=== PATIENT | female | born 1965 | race Caucasian/White ===

== ENCOUNTER 2016-12-16 05:26 | Inpatient (IN) | payer BC ==
[2016-12-16] MEDS ORDERED: KETOROLAC 30 MG/ML 1 ML VIAL IVP STA (05:45)
[2016-12-16] MEDS ORDERED: ONDANSETRON 4 MG/2 ML VIAL IVP STA (05:45)
[2016-12-16] MEDS ORDERED: SODIUM CHLORIDE 0.9% 1,000 ML IV STA ×2 (05:45→05:46)
--- NOTE | 2016-12-16 05:49 | ED ---
Chest Pain HPI - General Source: patient, family, RN notes reviewed Mode of arrival: ambulatory Limitations: no limitations - History of Present Illness MD Complaint: chest pain, other <Rafi Ceja - Last Filed: 12/16/16 05:47> <Maykel Michaud - Last Filed: 12/16/16 10:02> - General Chief Complaint: Chest Pain Stated Complaint: ABD PAIN Time Seen by Provider: 12/16/16 05:36 - History of Present Illness Initial Comments: This is a 51-year-old female who states she had the onset 4 days ago of epigastric and upper abdominal pain which today became worse and now is radiating down her stomach and up into her chest. She states is 10/10 severity feels like an elephant sitting on her stomach and lower chest she has nausea no vomiting no diarrhea he states feels like something is rubbing around her stomach. She has no prior history of abdominal surgeries she does have a strong family history of gallbladder disease which includes her daughter and her mother. She has had some fevers chills and sweats. No dysuria this time she does have a history of COPD. She is a smoker. We did a long discussion regarding smoking and the need to stop it lasted 3.1 minutes (Rafi Ceja) - Related Data Home Medications Medication Instructions Recorded Confirmed Montelukast [Singulair] 10 mg PO HS 08/09/15 12/16/16 ALPRAZolam [Xanax] 0.5 mg PO BID 12/16/16 12/16/16 DULoxetine HCL [Cymbalta] 30 mg PO DAILY 12/16/16 12/16/16 Fluocinonide 1 applic TOPICAL BID 12/16/16 12/16/16 Ibuprofen [Motrin] 800 mg PO TID PRN 12/16/16 12/16/16 metFORMIN HCL [Glucophage] 500 mg PO DAILY 12/16/16 12/16/16 traMADol HCL [Ultram] 50 mg PO Q6HR PRN 12/16/16 12/16/16 Allergies Allergy/AdvReac Type Severity Reaction Status Date / Time pregabalin [From Lyrica] Allergy Mild Rash/Hives Verified 12/16/16 08:09 Review of Systems ROS Other: All systems not noted in ROS Statement are negative. <Rafi Ceja - Last Filed: 12/16/16 05:47> ROS Other: All systems not noted in ROS Statement are negative. <Maykel Michaud - Last Filed: 12/16/16 10:02> ROS Statement: Those systems with pertinent positive or pertinent negative responses have been documented in the HPI. EKG Findings - EKG Results: EKG: interpreted by ERMD, sinus rhythm (Sinus rhythm rate of 58 MS interval is 142 QRS duration 92 QT/QTC of 464/[address] changes no acute elevations or depressions) <MarcialRafi - Last Filed: 12/16/16 05:47> Past Medical History Past Medical History: COPD, Diabetes Mellitus, Fibromyalgia, GERD/Reflux Additional Past Medical History / Comment(s): fatty liver, bronchitis, uti, hiatal hernia,rosecea. History of Any Multi-Drug Resistant Organisms: MRSA Date of last positivie culture/infection: 08/24/16 MDRO Source:: abdomen Past Surgical History: No Surgical Hx Reported Additional Past Surgical History / Comment(s): I AND D OF LABIAL ABSCESS/ fred groin abcess Past Anesthesia/Blood Transfusion Reactions: No Reported Reaction Additional Past Anesthesia/Blood Transfusion Reaction / Comment(s): no sx hx Past Psychological History: Anxiety, Depression Smoking Status: Current every day smoker Past Alcohol Use History: None Reported, Occasional Additional Past Alcohol Use History / Comment(s): started smoking at age 10 smokes 1 ppd, occ use of alcohol.occ smokes marijuana. Past Drug Use History: Marijuana - Past Family History Father History Unknown: Yes Additional Family Medical History / Comment(s): pacemaker,anxiety,depression Mother History Unknown: Yes Family Medical History: Diabetes Mellitus, Hypertension Additional Family Medical History / Comment(s): depression/anxiety <MarcialRafi - Last Filed: 12/16/16 05:47> General Exam Limitations: no limitations General appearance: alert, anxious Head exam: Present: atraumatic, normocephalic, normal inspection Eye exam: Present: normal appearance, PERRL, EOMI. Absent: scleral icterus, conjunctival injection, periorbital swelling ENT exam: Present: normal exam, mucous membranes moist Neck exam: Present: normal inspection. Absent: tenderness, meningismus, lymphadenopathy Respiratory exam: Present: normal lung sounds bilaterally. Absent: respiratory distress, wheezes, rales, rhonchi, stridor Cardiovascular Exam: Present: regular rate, normal rhythm, normal heart sounds. Absent: systolic murmur, diastolic murmur, rubs, gallop, clicks GI/Abdominal exam: Present: soft, tenderness (Epigastric right and left upper quadrant tenderness no guarding rebound), normal bowel sounds. Absent: distended, guarding, rebound, rigid Rectal exam: Present: deferred Extremities exam: Present: normal inspection, full ROM, normal capillary refill. Absent: tenderness, pedal edema, joint swelling, calf tenderness Back exam: Present: normal inspection Neurological exam: Present: alert, oriented X3, CN II-XII intact Psychiatric exam: Present: normal affect, normal mood Skin exam: Present: warm, dry, intact, normal color. Absent: rash <Rafi Ceja - Last Filed: 12/16/16 05:47> <Maykel Michaud - Last Filed: 12/16/16 10:02> - General Exam Comments Initial Comments: This is a well-developed well-nourished awake alert oriented 3 female (Marcial Rafi) Course <Rafi Ceja - Last Filed: 12/16/16 05:47> <Maykel Michaud - Last Filed: 12/16/16 10:02> Vital Signs 12/16/16 12/16/16 12/16/16 05:29 06:35 07:33 Temperature 97.1 F L Pulse Rate 70 57 L 63 Respiratory 24 18 18 Rate Blood Pressure 131/69 112/60 129/60 O2 Sat by Pulse 98 97 97 Oximetry 12/16/16 09:14 Temperature Pulse Rate 59 L Respiratory 18 Rate Blood Pressure 108/55 O2 Sat by Pulse 98 Oximetry - Reevaluation(s) Reevaluation #1: 12/16/16 10:01 Computed tomography scan of the aorta, chest abdomen and pelvis shows cystic structure in the pelvis. Possible prominent bladder. Bladder scan does show 500 mL of urine retention. Patient did need to use the restroom and did urinate following this. Ultrasound of the gallbladder shows no acute abnormality. One view abdomen shows nonacute abdomen. Two-view chest x-ray shows normal chest. Patient reevaluated by myself, Dr. Michaud. Patient seems to have the main complaint of chest tightness. Patient states there is also back discomfort and abdominal discomfort earlier however does not complain of these at this time. Abdomen is soft and nontender. Patient states she does feel like she needs to use the restroom. Patient updated on results and plan. Case was discussed in detail with Dr. Hines, who will admit his patient with cardiology consult. ( Maykel Michaud) Disposition <Rafi Ceja - Last Filed: 12/16/16 05:47> <Maykel Michaud - Last Filed: 12/16/16 10:02> Clinical Impression: Chest pain Disposition: ADMITTED IP TO THIS HOSP
[2016-12-16 06:00] LABS: HGB 15.7 gm/dL (11.4-16.0); Mean Platelet Volume 6.6
[2016-12-16 06:04] LABS: ALT 58 U/L (9-52); AST 33 U/L (14-36); Alkaline Phosphatase 60 U/L (38-126); Amylase <30 U/L (30-110); Anion Gap 12 mmol/L; Blood Urea Nitrogen 9 mg/dL (7-17); Calcium 9.3 mg/dL (8.4-10.2); Carbon Dioxide 25 mmol/L (22-30); Chloride 106 mmol/L (98-107); Glucose 128 mg/dL (74-99); Non-African American GFR(MDRD) >60 (>60 ml/min/1.73 sqM); Sodium 143 mmol/L (137-145); Total Bilirubin 1.2 mg/dL (0.2-1.3); Total Protein 6.8 g/dL (6.3-8.2)
[2016-12-16 06:13] LABS: Basophils % (A) 1 %; CH 32.9; CHCM 37.5; Eosinophils # (A) 0.1 k/uL (0-0.7); Eosinophils % (A) 2 %; HCT 44.7 % (34.0-46.0); Luc # (Auto) 0.13; Luc % (Auto) 2; Lymphocytes # (A) 2.3 k/uL (1.0-4.8); Lymphocytes % (A) 39 %; MCHC 35.2 g/dL (31.0-37.0); MCV 88.1 fL (80.0-100.0); Monocytes # (A) 0.4 k/uL (0-1.0); Monocytes % (A) 6 %; Neutrophils # (A) 2.9 k/uL (1.3-7.7); Neutrophils % (A) 50 %; Partial Thromboplastin Time 22.5 sec (22.0-30.0); RBC 5.07 m/uL (3.80-5.40); RDW 13.1 % (11.5-15.5); WBC 5.8 k/uL (3.8-10.6); WBC (Perox) 5.67
[2016-12-16 06:16] LABS: Creatine Kinase 70 U/L (30-135)
[2016-12-16 06:30] LABS: Creatine Kinase MB 0.7 ng/mL (0.0-2.4); Troponin I <0.012 ng/mL (0.000-0.034)
[2016-12-16 06:39] LABS: Manual Review Performed
--- NOTE | 2016-12-16 06:53 | XR ---
EXAMINATION TYPE: XR chest 2V DATE OF EXAM: 12/16/2016 6:02 AM COMPARISON: 08/26/2016 HISTORY: Chest pain TECHNIQUE: Frontal and lateral views of the chest are obtained. FINDINGS: Heart and mediastinum are normal. Lungs are clear. Diaphragm is normal. There are chest le ads. IMPRESSION: Normal chest. No change.
--- NOTE | 2016-12-16 06:54 | XR ---
EXAMINATION TYPE: XR abdomen 1V DATE OF EXAM: 12/16/2016 6:03 AM COMPARISON: NONE HISTORY: Epigastric pain TECHNIQUE: 2 views FINDINGS: Bowel gas pattern is normal. There is no sign of intestinal obstruction or pneumoperitoneum . Fecal pattern is normal. There is no sign of a mass. There are no pathologic calcifications over th e kidneys. Lung bases are clear. IMPRESSION: Nonacute abdomen.
[2016-12-16] MEDS ORDERED: MORPHINE SULFATE 4 MG/ML SYRINGE IV STA (07:58)
--- NOTE | 2016-12-16 08:12 | US ---
EXAMINATION TYPE: US gallbladder DATE OF EXAM: 12/16/2016 7:57 AM COMPARISON: NONE CLINICAL HISTORY: Pain. EC patient with nausea, diarrhea, and chest pain radiating to back x 4 days EXAM MEASUREMENTS: Liver Length: 20.1 cm Gallbladder Wall: 0.2 cm CBD: 0.5 cm Right Kidney: 10.3 x 5.3 x 4.7 cm TECHNOLOGIST IMPRESSION: Pancreas: hyperechoic Liver: hyperechoic and attenuated posteriorly Gallbladder: wnl Evidence for sonographic Myers's sign: pain at epigastric and right abd pain CBD: wnl Right Kidney: wnl Visualized pancreas is heterogeneous appearance without suspicious mass or ductal dilatation. Entire pancreas is not well-visualized due to overlying bowel gas. Heterogeneously hyperechoic liver is note d limiting evaluation for focal solid or cystic masses. Finding likely on basis of diffuse fatty infi ltration. IMPRESSION: No gallstones or ultrasound evidence for acute cholecystitis. Probable fatty infiltration of liver.
[2016-12-16] MEDS ORDERED: FAMOTIDINE 20 MG/2 ML VIAL IV STA (08:18)
[2016-12-16] MEDS ORDERED: RX INFO: IV CONTRAST WAS GIVEN 1 EACH MISC MISCELLANE PRN (08:18)
--- NOTE | 2016-12-16 09:46 | CT ---
EXAMINATION TYPE: CT angio thoracic/abd aorta DATE OF EXAM: 12/16/2016 9:26 AM COMPARISON: NONE HISTORY: 51-year-old female with abdominal and back pain TECHNIQUE: Contiguous axial scanning of the chest and abdomen performed without and with IV contrast, patient injected with 100 mL of Omnipaque 350. Coronal/sagittal MIP reconstructions performed. 3-D r econstructions generated on a dedicated independent workstation. CT DLP: 1626.8 mGycm Automated exposure control for dose reduction was used. FINDINGS: CHEST: Initial noncontrast images show no evidence for acute intramural hematoma. No mediastinal hematoma. Heart is normal size without pericardial effusion. Aorta is normal caliber with conventional arch vessel branching anatomy. No evidence for aortic disse ction or significant atherosclerotic change. Scattered nonenlarged mediastinal lymph nodes. No thoracic lymphadenopathy by CT size criteria. No central pulmonary embolus seen. Evaluation of the lungs shows no consolidation or pleural effusion. ABDOMEN: Tiny hiatal hernia. Noncontrast and early arterial phase images of the liver show hepatomegaly at 21 cm craniocaudal. The re appears to be mild fatty infiltration given some fatty sparing along the gallbladder fossa. The abdominal aorta shows very minimal atherosclerotic change along the right lateral wall prior to t he bifurcation. There is no aneurysm. The visceral arteries are widely patent. Common iliac arteries are also patent and nonaneurysmal. Gallbladder, adrenal glands, left kidney, spleen with tiny inferior splenule, and pancreas show no gr oss abnormality. There are a couple duodenal diverticulum at the junction of the second and third por tions projecting into the pancreatic head region. Tiny subcentimeter hypodensity along the anterior lower pole right kidney too small for accurate CT c haracterization, likely cyst. Tiny fatty umbilical hernia. No dilated small bowel, free fluid, or free air. Scattered nonenlarged mesenteric lymph nodes. Normal appendix is suggested. There is some liquid stool within the right hemicolon without pericolonic inf lammatory change. Large cystic structure partially visualized arising from the pelvis and reaching nearly to the level of the sacral promontory. The pelvis is not imaged on this exam. Bones: Facet arthropathy lower lumbar spine. No osseous destructive process. IMPRESSION: 1. NO EVIDENCE FOR ACUTE INTRAMURAL HEMATOMA, AORTIC ANEURYSM, DISSECTION, OR ANY SIGNIFICANT ATHEROS CLEROTIC CHANGE. 2. TINY HIATAL AND FATTY UMBILICAL HERNIAS. 3. SOME LIQUID STOOL IN THE RIGHT HEMICOLON COULD REFLECT MILD ENTERITIS. 4. HEPATOMEGALY AND SUGGESTION OF MILD FATTY INFILTRATION. 5. LARGE CYSTIC STRUCTURE PARTIALLY VISUALIZED ARISING FROM THE PELVIS AND REACHING TO THE LEVEL OF L 5-S1. THIS MAY REPRESENT A PROMINENT URINE DISTENDED BLADDER. CORRELATE FOR ANY URINARY RETENTION. IF INDICATED, ULTRASOUND CAN BE PERFORMED TO EXCLUDE ANY OTHER CYSTIC PELVIC MASS.
[2016-12-16] MEDS ORDERED: NITROGLYCERIN SL TABS 0.4 MG TAB SUBLINGUAL PRN (10:03)
--- NOTE | 2016-12-16 11:20 | US ---
EXAMINATION TYPE: US pelvis complete transvag DATE OF EXAM: 12/16/2016 10:52 AM COMPARISON: CTA aorta earlier today. Pelvic ultrasound March 28, 2013. CLINICAL HISTORY: pain, ? mass. History of ovarian cyst. Recent abnormal CT. TECHNIQUE: Transvaginal (TV) and Transabdominal (TA) pelvic ultrasound Date of LMP: unknown EXAM MEASUREMENTS: Uterus: 6.3 x 2.7 x 5.3 cm Endometrial Stripe: 0.3 cm Right Ovary: Left Ovary: unable to visualize TECHNOLOGIST IMPRESSION: 1. Uterus: Anteverted wnl 2. Endometrium: wnl 3. Right Ovary/right adnexa: cystic area = 11.5 x 7.9 x 8.8cm, unable to visualize any normal ovari an tissue 4. Left Ovary: unable to visualize 5. Left Adnexa: appears wnl 6. Posterior cul-de-sac: wnl Uterus is anteverted in shape and within normal limits in size. Endometrial stripe is within normal l imits. No free fluid in pelvic cul-de-sac is present. There is redemonstration of a large oval anechoic lesion felt to reflect simple cyst in the right ad nexa, it appears increased in size from 2013 ultrasound. No suspicious thickened septa or nodularity is present. No normal-appearing right ovarian tissue is identified. IMPRESSION: There is 11.5 cm simple appearing cyst right adnexa/ovary redemonstrated, increased in si ze from 2013 ultrasound, finding correlates with recent CT. Despite fairly simple ultrasound imaging appearance due to size greater than 7 cm further evaluation with MRI or surgery should be considered since these may be difficult to completely assess on ultraso und to rule out malignancy.
--- NOTE | 2016-12-16 12:08 | P.HPIM ---
History of Present Illness 51-year-old female presented the emergency room complaints of intermittent upper abdominal pain that radiates to the chest. Discomfort started on Thursday. Patient continues with chest pressure. Patient was tearful on examination. On pelvic ultrasound found ovarian mass 11 cm ACCESS REPRESENTATIVE and will become consult. A cardiology will be consult regarding chest Review of Systems Cardiovascular: Reports chest pain Gastrointestinal: Reports abdominal pain Past Medical History Past Medical History: COPD, Diabetes Mellitus, Fibromyalgia, GERD/Reflux, Hyperlipidemia, Hypertension, Liver Disease, Skin Disorder Additional Past Medical History / Comment(s): Past HTN and elevated cholesterol- pt took self off medications for this, abdominal cellulitis, fatty liver, bronchitis, uti, hiatal hernia, occasional bilateral tinnitis, rosecea. History of Any Multi-Drug Resistant Organisms: MRSA Date of last positivie culture/infection: 08/24/16 MDRO Source:: abdomen Past Surgical History: No Surgical Hx Reported Additional Past Surgical History / Comment(s): I & D OF LABIAL ABSCESS/ fred groin abcess Past Anesthesia/Blood Transfusion Reactions: No Reported Reaction Additional Past Anesthesia/Blood Transfusion Reaction / Comment(s): no sx hx Past Psychological History: Anxiety, Depression Additional Psychological History / Comment(s): Pt states she has increased depression which she believes may be r/t deaths in the family. She denies suicidal thoughts or wishing she were . She uses no assistive device. She does not drive, her spouse takes her to appts. Smoking Status: Current every day smoker Past Alcohol Use History: None Reported, Occasional Additional Past Alcohol Use History / Comment(s): started smoking at age 10 smokes 1 ppd, occ use of alcohol in the past but none for years. Occ smokes marijuana. Past Drug Use History: Marijuana Additional Drug Use History / Comment(s): occasionally - Past Family History Father History Unknown: Yes Additional Family Medical History / Comment(s): pacemaker,anxiety,depression Mother History Unknown: Yes Family Medical History: Diabetes Mellitus, Hypertension Additional Family Medical History / Comment(s): depression/anxiety Medications and Allergies Home Medications Medication Instructions Recorded Confirmed Type Montelukast [Singulair] 10 mg PO HS 08/09/15 12/16/16 History ALPRAZolam [Xanax] 0.5 mg PO BID 12/16/16 12/16/16 History DULoxetine HCL [Cymbalta] 30 mg PO DAILY 12/16/16 12/16/16 History Fluocinonide 1 applic TOPICAL BID 12/16/16 12/16/16 History Ibuprofen [Motrin] 800 mg PO TID PRN 12/16/16 12/16/16 History metFORMIN HCL [Glucophage] 500 mg PO DAILY 12/16/16 12/16/16 History traMADol HCL [Ultram] 50 mg PO Q6HR PRN 12/16/16 12/16/16 History Allergies Allergy/AdvReac Type Severity Reaction Status Date / Time pregabalin [From Lyrica] Allergy Mild Rash/Hives Verified 12/16/16 08:09 Physical Exam Vitals: Vital Signs Temp Pulse Resp BP Pulse Ox 12/16/16 12:00 97.8 F 51 L 18 105/54 95 12/16/16 10:22 97.8 F 59 L 20 99/54 97 - Constitutional General appearance: mild distress, obese - EENT Eyes: PERRLA Ears: bilateral: normal - Neck Neck: normal ROM - Respiratory Respiratory: bilateral: CTA - Cardiovascular Rhythm: regular - Gastrointestinal General gastrointestinal: soft Localized gastrointestinal: tender: diffuse - Integumentary Integumentary: normal - Neurologic Neurologic: CNII-XII intact - Musculoskeletal Musculoskeletal: gait normal - Psychiatric Patient tearful on exam Psychiatric: A&O x's 3, intact judgment & insight Results CBC & Chem 7: 12/16/16 05:45 12/16/16 05:45 Chest x-ray: report reviewed Abdominal x-ray: report reviewed CT scan - abdomen: report reviewed CT scan - chest: report reviewed US - abdomen: report reviewed Assessment and Plan Plan: Assessment Chest pain History of anxiety/depression COPD stable history of smoking Hypertension Diabetes type 2 Fibromyalgia GERD Ovarian mass right side Plan Cardiology consultation regarding chest pain ACCESS REPRESENTATIVE regarding ovarian mass
[2016-12-16 12:17] LABS: Creatine Kinase 56 U/L (30-135)
[2016-12-16 12:30] LABS: Creatine Kinase MB 0.5 ng/mL (0.0-2.4); Troponin I <0.012 ng/mL (0.000-0.034)
[2016-12-16] MEDS ORDERED: traMADol 50 MG TAB PO PRN (12:56)
[2016-12-16 13:05] LABS: Glucose,Whole Blood 141 mg/dL (75-99)
[2016-12-16] MEDS: NITROGLYCERIN OINT 1 INCH/GM PACKET TOPICAL SCH ×2 (15:22→21:04)
[2016-12-16 17:16] LABS: Glucose,Whole Blood 114 mg/dL (75-99)
--- NOTE | 2016-12-16 18:08 | CONS ---
DATE OF CONSULTATION: CHIEF COMPLAINT: Chest pain. Deena is a 51-year-old lady with no significant of prior cardiac history who came to hospital complaining of primarily abdominal discomfort and also had some chest pain when she was eating food. She does not have any angina. Does not have shortness of breath, paroxysmal nocturnal dyspnea or orthopnea. On her evaluation she was found to have an ovarian mass and is currently being evaluated for the same. She already had cardiac enzymes that have been negative and she was evaluated by me in August 2016 and at that time her work-up was negative. She had an echocardiogram that was within normal limits, ruled out for myocardial infarction and she had a dobutamine echo that was terminated due to nausea, vomiting. Past medical history is significant for COPD, diabetes, dyslipidemia, hypertension, liver disease, and chronic skin disorder. Medications: She is on: 1. Singulair. 2. Xanax. 3. Cymbalta. 4. Glucophage. 5. Tramadol. 6. Motrin. ALLERGIC TO LYRICA. The family history is negative for premature coronary artery disease, significant for pacemaker, anxiety and depression. SOCIAL HISTORY: Significant for smoking. There is no history of ETOH abuse, or drug abuse. She states that she uses marijuana. REVIEW OF SYSTEMS: HEENT: Unremarkable. CARDIAC: As described above. Respiratory negative. GI: Negative. GENITOURINARY: Negative. ALLERGY/IMMUNOLOGY: Negative. MUSCULOSKELETAL: Significant thin for arthritis. PSYCHOSOCIAL: Negative. ENDOCRINE: Negative. HEMATOLOGICAL: Negative. DERM: Negative. CONSTITUTIONAL: Negative. The rest of the system review is not relevant. On exam, comfortable at rest. Vital signs are stable. There is no jugular venous distention. Chest exam reveals good air entry bilaterally. Heart exam reveals first and second heart sounds. No gallop. No murmur, no rub. ABDOMEN: Soft, nontender. Exam of extremities did not reveal edema. Peripheral pulses are felt. Labs show a hemoglobin of 15.7, platelet count is 277. Potassium is 4. Creatinine is 0.5. D-dimer is negative. She had a CT chest that is negative for aortic aneurysm or dissection, has a pelvic mass. ASSESSMENT: 1. Chest pain, atypical does not require further work-up at this time. Will obtain a 2-D echo. 2. Pelvic mass work-up in progress. The patient may undergo a Lexiscan as outpatient.
[2016-12-16 19:06] LABS: Creatine Kinase MB 0.4 ng/mL (0.0-2.4); Troponin I <0.012 ng/mL (0.000-0.034)
[2016-12-16 19:14] LABS: Creatine Kinase 60 U/L (30-135)
[2016-12-16] MEDS: MORPHINE SULFATE 2 MG/ML SYRINGE IVP PRN (19:37)
--- NOTE | 2016-12-16 21:10 | P.GSCN ---
History of Present Illness Consult date: 12/16/16 Reason for Consult: Abdominal pain History of present illness: This is a 51-year-old female who's mid loss we'll for workup of abdominal pain. The patient states that she has pain in the epigastric and right left lower quadrant. She has some pain when eating. She's undergone a pelvic ultrasound shows a 11 cm right ovarian cyst. A Review of Systems - Constitutional Reports as per HPI Past Medical History Past Medical History: COPD, Diabetes Mellitus, Fibromyalgia, GERD/Reflux, Hyperlipidemia, Hypertension, Liver Disease, Skin Disorder Additional Past Medical History / Comment(s): Past HTN and elevated cholesterol- pt took self off medications for this, abdominal cellulitis, fatty liver, bronchitis, uti, hiatal hernia, occasional bilateral tinnitis, rosecea. History of Any Multi-Drug Resistant Organisms: MRSA Year Discovered:: 08/24/16 MDRO Source:: abdomen Past Surgical History: No Surgical Hx Reported Additional Past Surgical History / Comment(s): I & D OF LABIAL ABSCESS/ fred groin abcess Past Anesthesia/Blood Transfusion Reactions: No Reported Reaction Additional Past Anesthesia/Blood Transfusion Reaction / Comm: no sx hx Past Psychological History: Anxiety, Depression Additional Psychological History / Comment(s): Pt states she has increased depression which she believes may be r/t deaths in the family. She denies suicidal thoughts or wishing she were . She uses no assistive device. She does not drive, her spouse takes her to appts. Smoking Status: Current every day smoker Past Alcohol Use History: None Reported, Occasional Additional Past Alcohol Use History / Comment(s): started smoking at age 10 smokes 1 ppd, occ use of alcohol in the past but none for years. Occ smokes marijuana. Past Drug Use History: Marijuana Additional Drug Use History / Comment(s): occasionally - Past Family History Father History Unknown: Yes Additional Family Medical History / Comment(s): pacemaker,anxiety,depression Mother History Unknown: Yes Family Medical History: Diabetes Mellitus, Hypertension Additional Family Medical History / Comment(s): depression/anxiety Medications and Allergies Home Medications Medication Instructions Recorded Confirmed Type Montelukast [Singulair] 10 mg PO HS 08/09/15 12/16/16 History ALPRAZolam [Xanax] 0.5 mg PO BID 12/16/16 12/16/16 History DULoxetine HCL [Cymbalta] 30 mg PO DAILY 12/16/16 12/16/16 History Fluocinonide 1 applic TOPICAL BID 12/16/16 12/16/16 History Ibuprofen [Motrin] 800 mg PO TID PRN 12/16/16 12/16/16 History metFORMIN HCL [Glucophage] 500 mg PO DAILY 12/16/16 12/16/16 History traMADol HCL [Ultram] 50 mg PO Q6HR PRN 12/16/16 12/16/16 History Allergies Allergy/AdvReac Type Severity Reaction Status Date / Time pregabalin [From Lyrica] Allergy Mild Rash/Hives Verified 12/16/16 08:09 Surgical - Exam Vital Signs Temp Pulse Resp BP Pulse Ox 97.1 F L 70 24 131/69 98 12/16/16 05:29 12/16/16 05:29 12/16/16 05:29 12/16/16 05:29 12/16/16 05:29 - General well developed, no distress - Eyes PERRL - ENT normal pinna - Neck no masses - Respiratory normal expansion - Cardiovascular Rhythm: regular - Abdomen Abdomen soft. There is mild tenderness in the epigastric right upper quadrant and right left lower quadrant. There is no rebound or guarding. Abdomen: soft Results - Labs 12/16/16 05:45 12/16/16 05:45 Abnormal Lab Results - Last 24 Hours (Table) 12/16/16 12/16/16 Range/Units 13:02 17:12 POC Glucose (mg/dL) 141 H 114 H (75-99) mg/dL - Imaging Abdominal x-ray: report reviewed (Nonspecific) CT scan - pelvis: report reviewed (11 cm right ovarian cyst) US - abdomen: report reviewed (No evidence of gallstones) Assessment and Plan Plan: Abdominal pain. Her pelvic pain to be related to her 11 cm ovarian cysts. Her epigastric and right upper quadrant pain may be related to biliary dyskinesia. A HIDA scan will be ordered.
[2016-12-17] MEDS: ALPRAZolam 0.5 MG TAB PO SCH ×3 (00:15→22:17)
[2016-12-17] MEDS: MONTELUKAST 10 MG TAB PO SCH ×2 (00:15→22:17)
[2016-12-17] MEDS: NITROGLYCERIN OINT 1 INCH/GM PACKET TOPICAL SCH ×4 (00:16→19:48)
[2016-12-17] MEDS: MORPHINE SULFATE 2 MG/ML SYRINGE IVP PRN ×4 (00:17→22:17)
[2016-12-17 08:17] LABS: Cholesterol 172 mg/dL (<200); HDL Cholesterol 27 mg/dL (40-60); Triglycerides 234 mg/dL (<150)
--- NOTE | 2016-12-17 08:23 | P.OBCN ---
History of Present Illness Consult date: 12/17/16 Reason for consult: ovarian cyst History of present illness: This is a 51-year-old white female 3 para 1021 last menstrual period one year ago. Patient presented to the hospital yesterday with atypical chest pain. Cardiac examination to this point is negative. Patient is also complaining of a right abdominal pain that has been present over the course of several months. She denies nausea vomiting, she denies diarrhea. There are no urinary symptoms. There has been no vaginal bleeding. She denies vaginal discharge is itching or odor. Review of systems is otherwise negative. Past medical history significant for asthma, [id number] diabetes, obesity, and MRSA infection of the vulva in 2015. ALLERGIES none known. Current medications Singulair daily, Glucophage 500 mg twice daily, Zoloft 100 mg daily, bupropion. Social history is significant for one pack per day tobacco for 30 years, she denies alcohol or drug use. She is , and unemployed. Past surgical history excision of a vulvar abscess, positive MRSA, per Dr. Wagner in August 2015. 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 2 oz. female infant. She denies history of gonorrhea, Chlamydia, herpes, or any other sexually transmitted diseases. Family history is significant for her father dying at age 60 with cardiac disease, mother of age related illness age 80. No known history in the family of cancers of the ovaries, cervix, uterus, colon or breast. On exam this is a white female, 5 foot 4 inches, 193 pounds, blood pressure 103/ 52, pulse 61, respirations 18, 94% oxygenation on room air, temperature 98.9. The HEENT exam reveals a pierced nose and pierced right eyebrow, poor dentition , no thyromegaly, no cervical lymphadenopathy. Breasts reveal bilaterally pierced nipples, no skin changes, no nipple discharge, no discernible lesions or masses, no adenopathy. Chest exam reveals bilateral wheezing that changes with cough. Patient has a somewhat dramatic smoker's cough. The cardiac exam reveals regular rate and rhythm with no murmur click or rub. The abdomen is obese, soft, she does have tenderness in the right lower and mid aspects of the abdomen, minimal guarding, no rebound. Active bowel sounds are noted. No CVA tenderness. Extremities reveal no edema, good peripheral pulses. On pelvic exam external genitalia is well estrogenized. The cervix is mobile small and closed. The uterus is anteverted mobile and smooth. Left adnexa is negative. The right adnexal region is positive for a large cystic mass, smooth walled, very tender to palpation. Rectal exam reveals the presence of the same mass in the posterior cul-de-sac on the right, again it is smooth walled to palpation. Dark stool is obtained and sent to the lab for Hemoccult testing. Labs include decreased creatinine at 0.51, ALTs elevated at 58. Hemoglobin 15.7 , hematocrit 44.7, white count 5.8, 277,000 platelets. Ultrasound reveals a 11.5 x 7.9 x 8.8 cm simple cyst on the right adnexa, no septations, no nodularity, no calcifications. I have discussed this with radiologist Dr. Graves and we feel this is likely consistent with a serous cystadenoma. Left adnexa is negative. Uterus is anteverted small, uterine lining 0.3 cm. Impression: 11.5 cm simple clear cystic mass on the right adnexa, no concerning findings for malignancy, but large size, and increased in size from previous imaging in 2013 when it was measured at 7.4 x 7.0 cm. Overall poor medical health. Plan: patient is scheduled for hepatic biliary testing this morning per Dr. Karthik morales. I will discuss her care further with Dr. Hines, admitting physician. Likely surgical intervention will be necessary, timing uncertain at this time. We will continue to follow. Review of Systems Negative except as in HPI Past Medical History Past Medical History: COPD, Diabetes Mellitus, Fibromyalgia, GERD/Reflux, Hyperlipidemia, Hypertension, Liver Disease, Skin Disorder Additional Past Medical History / Comment(s): Past HTN and elevated cholesterol- pt took self off medications for this, abdominal cellulitis, fatty liver, bronchitis, uti, hiatal hernia, occasional bilateral tinnitis, rosecea. History of Any Multi-Drug Resistant Organisms: MRSA Year Discovered:: 08/24/16 MDRO Source:: abdomen Past Surgical History: No Surgical Hx Reported Additional Past Surgical History / Comment(s): I & D OF LABIAL ABSCESS/ fred groin abcess Past Anesthesia/Blood Transfusion Reactions: No Reported Reaction Additional Past Anesthesia/Blood Transfusion Reaction / Comm: no sx hx Past Psychological History: Anxiety, Depression Additional Psychological History / Comment(s): Pt states she has increased depression which she believes may be r/t deaths in the family. She denies suicidal thoughts or wishing she were . She uses no assistive device. She does not drive, her spouse takes her to appts. Smoking Status: Current every day smoker Past Alcohol Use History: None Reported, Occasional Additional Past Alcohol Use History / Comment(s): started smoking at age 10 smokes 1 ppd, occ use of alcohol in the past but none for years. Occ smokes marijuana. Past Drug Use History: Marijuana Additional Drug Use History / Comment(s): occasionally - Past Family History Father History Unknown: Yes Additional Family Medical History / Comment(s): pacemaker,anxiety,depression Mother History Unknown: Yes Family Medical History: Diabetes Mellitus, Hypertension Additional Family Medical History / Comment(s): depression/anxiety Medications and Allergies Home Medications Medication Instructions Recorded Confirmed Type Montelukast [Singulair] 10 mg PO HS 08/09/15 12/16/16 History ALPRAZolam [Xanax] 0.5 mg PO BID 12/16/16 12/16/16 History DULoxetine HCL [Cymbalta] 30 mg PO DAILY 12/16/16 12/16/16 History Fluocinonide 1 applic TOPICAL BID 12/16/16 12/16/16 History Ibuprofen [Motrin] 800 mg PO TID PRN 12/16/16 12/16/16 History metFORMIN HCL [Glucophage] 500 mg PO DAILY 12/16/16 12/16/16 History traMADol HCL [Ultram] 50 mg PO Q6HR PRN 12/16/16 12/16/16 History Allergies Allergy/AdvReac Type Severity Reaction Status Date / Time pregabalin [From Lyrica] Allergy Mild Rash/Hives Verified 12/16/16 08:09 Exam - Vital Signs Vital signs: Vital Signs Temp Pulse Pulse Pulse Resp BP BP 12/17/16 04:00 98.5 F 64 59 L 16 109/58 12/17/16 00:00 98.4 F 58 L 60 16 101/56 12/16/16 20:00 98.6 F 50 L 59 L 16 108/51 12/16/16 16:00 98.4 F 55 L 16 106/52 12/16/16 12:37 98.6 F 88 16 117/80 12/16/16 12:00 97.8 F 51 L 18 105/54 12/16/16 10:22 97.8 F 59 L 20 99/54 Pulse Ox 12/17/16 04:00 92 L 12/17/16 00:00 93 L 12/16/16 20:00 95 12/16/16 16:00 94 L 12/16/16 12:37 99 12/16/16 12:00 95 12/16/16 10:22 97 Intake and Output 12/16/16 12/17/16 12/17/16 22:59 06:59 14:59 Intake Total 500 Balance 500 Intake: Oral 500 Other: Voiding Method Toilet Toilet # Voids 2 1 Weight 87.815 kg See my dictation under HPI, please Results Result Diagrams: 12/16/16 05:45 12/16/16 05:45 Abnormal Lab Results - Last 24 Hours (Table) 12/16/16 12/16/16 Range/Units 13:02 17:12 POC Glucose (mg/dL) 141 H 114 H (75-99) mg/dL Assessment and Plan Plan: Likely surgical intervention will be necessary. Timing of this to be determined secondary to multiple medical issues at this time. We'll discuss further with Dr. Hines. Time with Patient: Greater than 30
--- NOTE | 2016-12-17 10:59 | NM ---
EXAMINATION TYPE: NM hepatobiliary w CCK DATE OF EXAM: 12/17/2016 10:34 AM COMPARISON: Correlation ultrasound 12/16/2016 HISTORY: 51-year-old female with abdominal pain TECHNIQUE: After the intravenous administration of 5.5 mCi Tc 99m Mebrofenin hepatobiliary scintigrap hy is performed. Immediate images post injection. FINDINGS: There is satisfactory initial accumulation of tracer by the liver. The gallbladder is visualized wit hin 12 minutes. The small bowel activity is noted within 46 minutes. At one hour CCK was administer ed, patient was injected with 1.8 mcg of Kinevac, and gallbladder ejection fraction is calculated at 35 %, borderline to mildly diminished IMPRESSION: Gallbladder ejection fraction is borderline to mildly diminished at 35%. Given the normal appearance of the gallbladder on 12/16/2016 ultrasound, correlate for the possibility of biliary dyskinesia.
[2016-12-17] MEDS: ASPIRIN 325 MG TAB PO SCH (11:03)
--- NOTE | 2016-12-17 11:03 | PN ---
Deena is a 51-year-old lady who presented to the hospital with chest discomfort that is atypical and seemed noncardiac in origin. She actually had discomfort when she was eating food. Her workup subsequently revealed an ovarian ( ) and she may need surgery for the same. The patient had a CT chest that is negative for aortic aneurysm or dissection. She had an echocardiogram done within the last few months that showed normal LV function. Physical exam has remained unchanged. Vital signs are stable. Labs show that the LDL cholesterol is 98. Cardiac enzymes have been negative. ASSESSMENT: 1. Atypical chest pain, myocardial infarction ruled out. 2. An ovarian mass. PLAN: From cardiac standpoint, she does not require further testing at this time. I do not see any contraindications for patient undergoing surgery at this time. Thank you for allowing us to participate in the care of this pleasant lady.
[2016-12-17] MEDS: DULoxetine HCL 30 MG CAPSULE.DR PO SCH (11:04)
[2016-12-17] MEDS: metFORMIN 500 MG TAB PO SCH (11:04)
--- NOTE | 2016-12-17 12:31 | P.PN ---
Subjective Patient appears more comfortable than yesterday. Had discussion with Dr. Brand regarding possible surgery tomorrow for ovarian mass. Recommended clearance with pulmonology for reoperative clearance. Patient had consultation with surgery noted possible biliary dysfunction with HIDA scan. Objective - Vital Signs Vital signs: Vital Signs Temp 98.9 F 12/17/16 08:00 Pulse 61 12/17/16 08:00 Resp 18 12/17/16 08:00 BP 103/52 12/17/16 08:00 Pulse Ox 94 L 12/17/16 08:00 Intake & Output 12/16/16 12/17/16 12/17/16 18:59 06:59 18:59 Intake Total 500 Balance 500 Weight 87.815 kg 87.815 kg Intake: Oral 500 Other: Voiding Method Toilet Toilet # Voids 1 - Constitutional General appearance: Present: obese - EENT Eyes: Present: PERRLA Ears: bilateral: normal - Neck Neck: Present: normal ROM - Respiratory Respiratory: bilateral: rhonchi - Cardiovascular Rhythm: regular - Gastrointestinal General gastrointestinal: Present: soft - Integumentary Integumentary: Present: normal - Neurologic Neurologic: Present: CNII-XII intact - Musculoskeletal Musculoskeletal: Present: generalized weakness - Psychiatric Psychiatric: Present: A&O x's 3, appropriate affect, intact judgment & insight - Labs CBC & Chem 7: 12/16/16 05:45 12/16/16 05:45 Labs: Abnormal Lab Results - Last 24 Hours (Table) 12/16/16 12/16/16 12/17/16 Range/Units 13:02 17:12 07:06 POC Glucose (mg/dL) 141 H 114 H (75-99) mg/dL Triglycerides 234 H (<150) mg/dL HDL Cholesterol 27 L (40-60) mg/dL Assessment and Plan Plan: Assessment Chest pain atypical troponins negative treatment deferred by cardiology Abdominal pain possible biliary dyskinesia Ovarian mass right side 11 cm History of COPD smoker Anxiety/depression Fibromyalgia GERD Diabetes type 2 Plan Pulmonology clearance for surgery tomorrow regarding ovarian mass Continue consultation with surgery regarding biliary dyskinesia
--- NOTE | 2016-12-17 13:40 | P.PN ---
Subjective Principal diagnosis: Biliary dyskinesia Patient is a 51-year-old female admitted with epigastric and right lower quadrant abdominal pain associated with nausea without vomiting. Ultrasound of pelvis with evidence of 11 cm right ovarian cyst. HIDA scan with evidence of biliary dyskinesia. Upon examination, patient denies abdominal pain but complains of minimal epigastric pain especially after eating. Denies nausea or vomiting. Afebrile. Hemodynamically stable. Objective - Vital Signs Vital signs: Vital Signs Temp 99.4 F 12/17/16 12:00 Pulse 55 L 12/17/16 12:00 Resp 16 12/17/16 12:00 BP 109/53 12/17/16 12:00 Pulse Ox 93 L 12/17/16 12:00 Intake & Output 12/16/16 12/17/16 12/17/16 18:59 06:59 18:59 Intake Total 500 Balance 500 Weight 87.815 kg 87.815 kg Intake: Oral 500 Other: Voiding Method Toilet Toilet # Voids 1 - Exam GENERAL: Pt awake and alert, well-nourished, and in no acute distress. LUNGS: Breath sounds diminished to auscultation bilaterally. No wheezes, rales , or rhonchi. HEART: Heart S1, S2, no S3 or S4. Regular rate and rhythm. No murmurs, rubs or gallops. ABDOMEN: Soft, obese, mild epigastric tenderness, nondistended, normoactive bowel sounds. NEUROLOGICAL: Pt oriented x 3. - Labs CBC & Chem 7: 12/16/16 05:45 12/16/16 05:45 Labs: Abnormal Lab Results - Last 24 Hours (Table) 12/16/16 12/17/16 Range/Units 17:12 07:06 POC Glucose (mg/dL) 114 H (75-99) mg/dL Triglycerides 234 H (<150) mg/dL HDL Cholesterol 27 L (40-60) mg/dL Assessment and Plan Plan: Impression: 1. Biliary dyskinesia. HIDA scan with ejection fraction of 35%. 2. Ovarian mass right side 11.5 cm. Plan: 1. Patient will need surgical intervention for a large ovarian mass and biliary dyskinesia. Dr. Desir will discuss timing with Dr. Hines and Dr. Arredondo. The above impression and plan have been discussed and directed by Dr Desir. Courtney REYNA acting as scribe for Dr. Desir.
[2016-12-17] MEDS ORDERED: IPRATROPIUM-ALBUTEROL 3 ML NEB INHALATION PRN (15:59)
--- NOTE | 2016-12-17 17:49 | P.CNPUL ---
History of Present Illness Consult date: 12/17/16 Requesting physician: Leo Hines Reason for consult: other (Preoperative pulmonary clearance for surgery.) Chief complaint: Abdominal pains History of present illness: This is a 51-year-old female, heavy smoker, patient was admitted with mostly right upper quadrant and right lower quadrant abdominal pain. This was associated with nausea but no vomiting. Ultrasound of the pelvis showed 11 cm right ovarian cyst HIDA scan was suggestive of early any dyskinesia. Patient was seen by many consultants, and I believe she was scheduled for surgery on her ovarian cyst tomorrow. Considering her history of COPD and heavy smoking, I was asked to see her on consultation for preoperative clearance. Pulmonary- ashby the patient has symptoms of intermittent cough no wheezing, no shortness of breath, no chest pain. She is at least a [id number] smoker. Presently patient has no active pulmonary symptoms. Review of Systems 12 point review of systems were obtained please refer to pertinent positives and negatives as per HPI Past Medical History Past Medical History: COPD, Diabetes Mellitus, Fibromyalgia, GERD/Reflux, Hyperlipidemia, Hypertension, Liver Disease, Skin Disorder Additional Past Medical History / Comment(s): Past HTN and elevated cholesterol- pt took self off medications for this, abdominal cellulitis, fatty liver, bronchitis, uti, hiatal hernia, occasional bilateral tinnitis, rosecea. History of Any Multi-Drug Resistant Organisms: MRSA Date of last positivie culture/infection: 08/24/16 MDRO Source:: abdomen Past Surgical History: No Surgical Hx Reported Additional Past Surgical History / Comment(s): I & D OF LABIAL ABSCESS/ fred groin abcess Past Anesthesia/Blood Transfusion Reactions: No Reported Reaction Additional Past Anesthesia/Blood Transfusion Reaction / Comment(s): no sx hx Past Psychological History: Anxiety, Depression Additional Psychological History / Comment(s): Pt states she has increased depression which she believes may be r/t deaths in the family. She denies suicidal thoughts or wishing she were . She uses no assistive device. She does not drive, her spouse takes her to appts. Smoking Status: Current every day smoker Past Alcohol Use History: None Reported, Occasional Additional Past Alcohol Use History / Comment(s): started smoking at age 10 smokes 1 ppd, occ use of alcohol in the past but none for years. Occ smokes marijuana. Past Drug Use History: Marijuana Additional Drug Use History / Comment(s): occasionally - Past Family History Father History Unknown: Yes Additional Family Medical History / Comment(s): pacemaker,anxiety,depression Mother History Unknown: Yes Family Medical History: Diabetes Mellitus, Hypertension Additional Family Medical History / Comment(s): depression/anxiety Medications and Allergies Home Medications Medication Instructions Recorded Confirmed Type Montelukast [Singulair] 10 mg PO HS 08/09/15 12/16/16 History ALPRAZolam [Xanax] 0.5 mg PO BID 12/16/16 12/16/16 History DULoxetine HCL [Cymbalta] 30 mg PO DAILY 12/16/16 12/16/16 History Fluocinonide 1 applic TOPICAL BID 12/16/16 12/16/16 History Ibuprofen [Motrin] 800 mg PO TID PRN 12/16/16 12/16/16 History metFORMIN HCL [Glucophage] 500 mg PO DAILY 12/16/16 12/16/16 History traMADol HCL [Ultram] 50 mg PO Q6HR PRN 12/16/16 12/16/16 History Allergies Allergy/AdvReac Type Severity Reaction Status Date / Time pregabalin [From Lyrica] Allergy Mild Rash/Hives Verified 12/16/16 08:09 Physical Exam Vitals: Vital Signs Temp Pulse Pulse Resp BP Pulse Ox 12/17/16 15:30 98.9 F 61 18 101/51 93 L 12/17/16 12:00 99.4 F 55 L 16 109/53 93 L 12/17/16 08:00 98.9 F 61 18 103/52 94 L 12/17/16 04:00 98.5 F 64 59 L 16 109/58 92 L 12/17/16 00:00 98.4 F 58 L 60 16 101/56 93 L 12/16/16 20:00 98.6 F 50 L 59 L 16 108/51 95 Intake and Output 12/17/16 12/17/16 12/17/16 06:59 14:59 22:59 Other: Voiding Method Toilet # Voids 1 2 Weight 87.815 kg Physical Exam: Revealed a 51-year-old female in no distress HEENT:[Neck is supple.] [No neck masses.] [No thyromegaly.] [No JVD.] Chest: [Clear throughout, no crackles, no rhonchi, no wheezes.] Cardiac Exam: [Normal S1 and S2, no S3 gallop, no murmur.] Abdomen: [Soft, nontender, no megaly, no rebound, no guarding, normal bowel sounds.] Extremities: [No clubbing, no edema, no cyanosis.] Neurological Exam: [No focal neurologic deficit.] Results - Laboratory Findings CBC and BMP: 12/16/16 05:45 12/16/16 05:45 PT/INR, D-dimer PT 10.0 sec (9.0-12.0) 12/16/16 05:45 INR 1.0 (<1.1) 12/16/16 05:45 D-Dimer 0.33 mg/L FEU (<0.60) 12/16/16 05:45 Abnormal lab findings: Abnormal Labs 12/16/16 12/16/16 12/17/16 13:02 17:12 07:06 POC Glucose (mg/dL) 141 H 114 H Triglycerides 234 H HDL Cholesterol 27 L - Diagnostic Findings Chest x-ray: image reviewed (Chest x-ray reviewed on admission no evidence of active disease) Assessment and Plan Plan: Impression: 1 large ovarian cyst, may require surgical intervention. 2 biliary dyskinesia with HIDA scan showing ejection fraction of 35%. 3 suspect mild COPD, presently on proper bronchodilators. Recommendation: Patient will be cleared for surgery, she is considered low operative risk. Time with Patient: Greater than 30
[2016-12-18] MEDS: NITROGLYCERIN OINT 1 INCH/GM PACKET TOPICAL SCH ×5 (03:22→23:16)
[2016-12-18] MEDS: MORPHINE SULFATE 2 MG/ML SYRINGE IVP PRN (04:00)
--- NOTE | 2016-12-18 07:39 | P.PN ---
Subjective Principal diagnosis: 11.5 cm right pelvic mass Objective - Vital Signs Vital signs: Vital Signs Temp 98.0 F 12/18/16 04:00 Pulse 52 L 12/18/16 04:00 Resp 16 12/18/16 04:00 BP 114/56 12/18/16 04:00 Pulse Ox 95 12/18/16 04:00 Intake & Output 12/17/16 12/18/16 12/18/16 18:59 06:59 18:59 Other: Voiding Method Toilet Toilet # Voids 2 1 - Constitutional General appearance: Present: average body habitus, cooperative, obese - EENT Eyes: Present: PERRLA ENT: Present: hearing grossly normal - Neck Neck: Present: normal ROM Thyroid: bilateral: normal size - Respiratory Respiratory: bilateral: CTA - Cardiovascular Rhythm: regular - Gastrointestinal General gastrointestinal: Present: normal bowel sounds, tenderness Localized gastrointestinal: tender: RLQ, guarding: RLQ, mass: RLQ - Integumentary Integumentary: Present: normal - Neurologic Neurologic: Present: CNII-XII intact - Musculoskeletal Musculoskeletal: Present: strength equal bilaterally - Psychiatric Psychiatric: Present: A&O x's 3, appropriate affect, intact judgment & insight - Labs CBC & Chem 7: 12/16/16 05:45 12/16/16 05:45 Labs: Abnormal Lab Results - Last 24 Hours (Table) 12/17/16 Range/Units 07:06 Triglycerides 234 H (<150) mg/dL HDL Cholesterol 27 L (40-60) mg/dL Assessment and Plan Plan: Plan is for surgery this afternoon. I have discussed with the patient our plan , exploratory laparotomy, right salpingo-oophorectomy, pelvic washings, possible left salpingo-oophorectomy and surgery as deemed appropriate. She is aware the risks of surgery to include but not be exclusive of bleeding, infection, perforation or damage to bowel, bladder, ureters or indeed any pelvic or abdominal organs. She understands the risks of anesthesia, aspiration , nerve damage or even . Her pulmonary history is of concern, however preoperative clearance has been given last night per Dr. Vaughn. The patient understands our discussion and is ready for surgery at noon. All questions answered. Time with Patient: Less than 30
--- NOTE | 2016-12-18 08:13 | P.PN ---
Progress Note - Text The patient still has some complaints of right quadrant pain. Her HIDA scan is positive for biliary dyskinesia. I discussed these findings the patient. The patient will have laparoscopic cholecystectomy performed today. This will be scheduled to be concurrent with Dr. Arredondo's procedure.
--- NOTE | 2016-12-18 08:19 | ECHOF ---
Referral Reason:chest pain MEASUREMENTS -------- HEIGHT: 162.6 cm WEIGHT: 87.5 kg BP: 103/52 RVIDd: 3.5 cm (< 3.3) IVSd: 1.3 cm (0.6 - 1.1) LVIDd: 3.7 cm (3.9 - 5.3) LVPWd: 1.1 cm (0.6 - 1.1) IVSs: 1.7 cm LVIDs: 2.6 cm LVPWs: 1.9 cm LA Diam: 4.1 cm (2.7 - 3.8) LAESV Index (A-L): 23.50 ml/m Ao Diam: 2.8 cm (2.0 - 3.7) AV Cusp: 1.9 cm (1.5 - 2.6) LA Diam: 3.6 cm (2.7 - 3.8) MV EXCURSION: 12.907 mm (> 18.000) MV EF SLOPE: 98 mm/s (70 - 150) EPSS: 0.7 cm MV E Cristopher: 0.82 m/s MV DecT: 226 ms MV A Cristopher: 0.62 m/s MV E/A Ratio: 1.31 RAP: 5.00 mmHg RVSP: 30.28 mmHg FINDINGS -------- Resting bradycardia (HR<60bpm). This was a technically good study. There is mild concentric left ventricular hypertrophy. Overall left ventricular systolic function is normal with, an EF between 55 - 60 %. The right ventricle is mildly enlarged. Normal LA size by volume 22+/-6 ml/m2. The right atrium is normal in size. Aortic valve is trileaflet and is mildly thickened. Mild mitral annular calcification present. There is trace mitral regurgitation. Mild tricuspid regurgitation present. Right ventricular systolic pressure is normal at < 35 mmHg. Trace/mild (physiologic) pulmonic regurgitation. The aortic root size is normal. Normal inferior vena cava with normal inspiratory collapse consistent with estimated right atrial pressure of 5 mmHg. Echo free space may represent effusion or a pericardial fat pad. CONCLUSIONS -------- 1. Resting bradycardia (HR<60bpm). 2. There is trace mitral regurgitation. 3. Mild tricuspid regurgitation present. 4. Right ventricular systolic pressure is normal at < 35 mmHg. 5. Trace/mild (physiologic) pulmonic regurgitation. 6. The aortic root size is normal. 7. Echo free space may represent effusion or a pericardial fat pad. 8. This was a technically good study. 9. There is mild concentric left ventricular hypertrophy. 10. Overall left ventricular systolic function is normal with, an EF between 55 - 60 %. 11. The right ventricle is mildly enlarged. 12. Normal LA size by volume 22+/-6 ml/m2. 13. The right atrium is normal in size. 14. Aortic valve is trileaflet and is mildly thickened. 15. Mild mitral annular calcification present. CURATORIAL SPECIALIST: Mian Joyce RDCS
[2016-12-18] MEDS ORDERED: LIDOCAINE 1% 20 ML VIAL (10MG/ML) FOR IV START INTRADERMA ONE (10:31)
[2016-12-18 10:46] LABS: Glucose,Whole Blood 107 mg/dL (75-99)
[2016-12-18] MEDS ORDERED: SODIUM CHLORIDE 0.9% 1,000 ML IV ONE (10:52)
[2016-12-18] MEDS ORDERED: ceFAZolin 2 GM in SODIUM CHLORIDE 0.9% 100 ML IVPB STA (11:04)
[2016-12-18] MEDS ORDERED: MIDAZOLAM 2 MG/2 ML VIAL IV ONE (11:05)
[2016-12-18] MEDS ORDERED: NALOXONE 0.4 MG/ML 1 ML VIAL IV PRN ×2 (11:16→12:31)
[2016-12-18] MEDS ORDERED: HEPARIN SODIUM,PORCINE 5,000 UNIT/ML 1 ML VIAL SQ ONE (11:25)
[2016-12-18] MEDS ORDERED: ONDANSETRON 4 MG/2 ML VIAL IVP ONE (11:43)
[2016-12-18] MEDS ORDERED: DEXAMETHASONE SOD PHOSPHATE 10 MG/ML 1 ML VIAL IV ONE (11:43)
[2016-12-18] MEDS ORDERED: GLYCOPYRROLATE 0.2 MG/ML 2 ML VIAL ONE (11:51)
[2016-12-18] MEDS ORDERED: SUCCINYLCHOLINE CHLORIDE 100 MG/5 ML SYR IV ONE (11:51)
[2016-12-18] MEDS ORDERED: MIDAZOLAM 2 MG/2 ML VIAL ONE (11:51)
[2016-12-18] MEDS ORDERED: LIDOCAINE 1% INJ 10MG/ML (20 ML MDV) ONE (11:51)
[2016-12-18] MEDS ORDERED: ROCURONIUM BROMIDE 10 MG/ML 10 ML VIAL IV ONE (11:51)
[2016-12-18] MEDS ORDERED: fentaNYL (PF) 50 MCG/ML 2 ML AMP ONE (11:51)
[2016-12-18] MEDS ORDERED: NEOSTIGMINE 1 MG/ML 10 ML VIAL ONE (11:51)
[2016-12-18] MEDS ORDERED: PROPOFOL 10 MG/ML 20 ML VIAL IV ONE (11:51)
[2016-12-18] MEDS ORDERED: BUPIVACAIN-EPI 0.25%-1:200,000 30 ML VIAL SQ ONE (12:14)
[2016-12-18] MEDS ORDERED: LACTATED RINGERS 1,000 ML IV ONE ×2 (12:31→12:33)
[2016-12-18] MEDS ORDERED: HYDROcodone/APAP 5-325MG 1 EACH TAB PO PRN (12:31)
[2016-12-18] MEDS ORDERED: ACETAMINOPHEN TAB 325 MG TAB PO PRN (12:31)
[2016-12-18] MEDS ORDERED: ONDANSETRON 4 MG/2 ML VIAL IVP PRN (12:31)
[2016-12-18] MEDS ORDERED: traMADol 50 MG TAB PO PRN (12:31)
--- NOTE | 2016-12-18 12:31 | P.OP ---
Date of Procedure: 12/18/16 Preoperative Diagnosis: Chronic cholecystitis Postoperative Diagnosis: Chronic cholecystitis Procedure(s) Performed: Laparoscopic cholecystectomy Anesthesia: JAZZMINE Surgeon: Lucho Desir Pathology: other (Gallbladder) Condition: stable Disposition: PACU Description of Procedure: The patient was placed on the operating table. The patient received a general endotracheal tube anesthesia. The patients abdomen was prepped and draped in the usual sterile fashion. Through an infraumbilical stab incision, the fascia of the anterior abdominal wall was grasped with a pair of Kochers and then the Veress needle was placed in the peritoneal cavity. Position of the Veress needle was confirmed with positive drop test. The abdomen was then insufflated. After adequate insufflation, the 10 mm trocar was placed in the peritoneal cavity. Following this the laparoscope was placed in the peritoneal cavity. The patient was placed in the head-up, right side up position and then a 5 mm trocar was placed in the right lateral and right subcostal position under direct visualization. A 8 mm trocar was placed in the epigastric position. The gallbladder was grasped in the fundus and infundibulum. Traction on the gallbladder was placed in the lateral and the cephalad positions. The triangle of Calot was visualized.. The cystic duct was bluntly dissected until the union of the cystic duct and common bile duct was seen. The cystic duct was then divided and sealed with the Harmonic scissors. A PDS Endoloop was then placed throughout the cystic duct stump. The cystic artery divided and sealed with the Harmonic scissors. The gallbladder was then removed from the liver bed using Harmonic scissors. The gallbladder was then extracted through the epigastric port site. Operative field was checked for any bleeding spots and Harmonic scissors was used to coagulate the liver bed. The abdomen was irrigated. The trocars were removed. The skin was closed using interrupted 3-[address] Arredondo then continued with her procedure. Please see her procedure note.
[2016-12-18] MEDS ORDERED: KETOROLAC 30 MG/ML 1 ML VIAL IVP SCH (12:45)
--- NOTE | 2016-12-18 13:07 | P.OP ---
Date of Procedure: 12/18/16 Preoperative Diagnosis: 11 cm right adnexal mass Postoperative Diagnosis: Same Procedure(s) Performed: Exploratory laparotomy, pelvic washings, right salpingo-oophorectomy. Anesthesia: GETA, epidural Surgeon: Tova Arredondo Cook Helper Meat #1: Lesly Arnold Estimated Blood Loss (ml): 20 IV fluids (ml): 1,200 Urine output (ml): 100 Pathology: other (Right tube and ovary, pelvic washings) Condition: stable Disposition: PACU Description of Procedure: After completion of the laparoscopic cholecystectomy, the abdomen is prepped and draped in usual sterile fashion. The Garsia has been placed to direct drainage. Preoperative antibiotics had been given. The appropriate timeout is performed to assure proper patient and procedural identification. A low transverse skin incision is made in this is carried down through the subcutaneous tissue. The tissue is approximately 8-10 cm deep. Fascia is isolated, scored and extended bilaterally with curved Dunn scissors. Peritoneum is next identified and incised. There is no bowel or bladder involvement. Sterile saline is placed into the abdominal cavity and pelvic washings are obtained and sent for cytology. Gentle exploration reveals a negative pelvis with the exception of the large right adnexal mass. The disposable a Daya wound retractors placed into the abdomen for excellent exposure. The large cystic right mass is brought into the operative field. It is clamped with Nilda clamps across the pedicle. It was removed intact and sent to pathology for evaluation. 0 Vicryl sutures used in a Nilda-type stitch to tie flashed and retied the pedicles for excellent hemostasis. Examination of the uterus and the left tube and ovary revealed no abnormal findings, no fibroids, no defects, no cysts on the left adnexa. The pelvis was generously irrigated and all instruments are removed. Fascia is closed in a running stitch of 0 Vicryl with over ligation in the midline. Subcutaneous tissue is irrigated, clean and dry. It is reapproximated with 3-0 Vicryl in a running stitch. 4-0 undyed Vicryl is used and a final subcuticular manner for final skin closure. Steri-Strips and Mastisol are applied to the wound. Dermabond is applied to the laparoscopic wounds. All sponge needle and enhancement counts are correct at the end of our procedure. Patient is brought back to the recovery room in good condition with 100% O2 saturation, blood pressure 105/47, pulse 51. Urine is clear in the Garsia tube. Complications: None
[2016-12-18] MEDS: BUPIVACAINE (PF) 0.5% 37.5 ML, fentaNYL (PF) 1,250 MCG in SODIUM CHLORIDE 0.9% 188 ML EPIDURAL PRN ×2 (13:21→14:59)
[2016-12-18 14:46] LABS: Glucose,Whole Blood 154 mg/dL (75-99)
[2016-12-18] MEDS: metFORMIN 500 MG TAB PO SCH (15:20)
[2016-12-18] MEDS: ALPRAZolam 0.5 MG TAB PO SCH ×2 (15:20→20:37)
[2016-12-18] MEDS: DULoxetine HCL 30 MG CAPSULE.DR PO SCH (15:20)
[2016-12-18] MEDS: KETOROLAC 30 MG/ML 1 ML VIAL IVP SCH ×2 (15:20→19:07)
[2016-12-18] MEDS: ASPIRIN 325 MG TAB PO SCH (15:20)
[2016-12-18] MEDS: diphenhydrAMINE 50 MG/ML 1 ML VIAL IM PRN ×2 (16:52→22:48)
--- NOTE | 2016-12-18 20:08 | P.PN ---
Subjective 51-year-old female that is admitted to the hospital with complains of right upper quadrant pain. Patient was noted to have biliary dyskinesia. Patient was also thereafter noted to have a large right cystic pelvic mass. Patient is postoperative day 1 from a cholecystectomy and right cystic mass removal. Her graft currently patient is comfortable on epidural. Denies having any chest pain, cough, nausea or episodes of emesis. Patient has not been passing gas yet. States to be tolerating clear liquid diet. Objective - Vital Signs Vital signs: Vital Signs Temp 98.2 F 12/18/16 15:28 Pulse 64 12/18/16 16:00 Resp 16 12/18/16 16:00 BP 96/46 12/18/16 15:28 Pulse Ox 94 L 12/18/16 15:28 - Exam Gen. appearance oriented 3 Lungs good air entry clear to auscultation no rhonchi or wheezing noted Heart S1-S2 heard regular rate and rhythm no murmurs appreciable Abdomen postsurgical changes noted. Soft. Bowel sounds are hypoactive Garsia catheter in place Neurologically no focal motor or sensory deficits noted. - Labs CBC & Chem 7: 12/16/16 05:45 12/16/16 05:45 Assessment and Plan Plan: #1 abdominal pain likely secondary to biliary dyskinesia #2 large right cystic pelvic mass status post removal #3 history of ongoing tobacco use #4 mild COPD suspected Plan Continue postoperative management. Diet will be advanced as tolerated however directed by general surgery Continue epidural. Encourage incentive spirometer. Oxygen for comfort.
[2016-12-18 21:46] LABS: Glucose,Whole Blood 230 mg/dL (75-99)
[2016-12-18] MEDS: MONTELUKAST 10 MG TAB PO SCH (22:00)
[2016-12-18] MEDS: INSULIN LISPRO (humaLOG) 300 UNIT/3 ML VIAL SQ SCH (22:03)
[2016-12-19] MEDS ORDERED: HEPARIN SODIUM,PORCINE 5,000 UNIT/ML 1 ML VIAL SQ SCH
[2016-12-19] MEDS: KETOROLAC 30 MG/ML 1 ML VIAL IVP SCH ×3 (00:47→12:51)
[2016-12-19] MEDS ORDERED: diphenhydrAMINE 50 MG/ML 1 ML VIAL IVP PRN (04:22)
[2016-12-19] MEDS: NITROGLYCERIN OINT 1 INCH/GM PACKET TOPICAL SCH ×2 (05:28→12:51)
[2016-12-19 07:22] LABS: ALT 53 U/L (9-52); AST 41 U/L (14-36); Alkaline Phosphatase 46 U/L (38-126); Anion Gap 11 mmol/L; Blood Urea Nitrogen 10 mg/dL (7-17); Calcium 8.5 mg/dL (8.4-10.2); Carbon Dioxide 25 mmol/L (22-30); Chloride 107 mmol/L (98-107); Glucose 95 mg/dL (74-99); Non-African American GFR(MDRD) >60 (>60 ml/min/1.73 sqM); Potassium 3.4 mmol/L (3.5-5.1); Sodium 143 mmol/L (137-145); Total Bilirubin 0.9 mg/dL (0.2-1.3); Total Protein 5.3 g/dL (6.3-8.2)
[2016-12-19 07:25] LABS: Glucose,Whole Blood 97 mg/dL (75-99)
[2016-12-19] MEDS ORDERED: INSULIN LISPRO (humaLOG) 300 UNIT/3 ML VIAL SQ SCH (07:30)
--- NOTE | 2016-12-19 07:56 | P.PN ---
Subjective Principal diagnosis: Postoperative day #1 Slept well. Positive flatus. Minimal pain. No complaints. Objective - Vital Signs Vital signs: Vital Signs Temp 96.4 F L 12/19/16 07:00 Pulse 59 L 12/19/16 07:00 Resp 17 12/19/16 07:00 BP 87/45 12/19/16 07:00 Pulse Ox 95 12/19/16 07:00 Intake & Output 12/18/16 12/19/16 12/19/16 18:59 06:59 18:59 Intake Total 400 Output Total 2500 Balance -2100 Intake: Oral 400 Output: Urine 2500 Uretheral (Garsia) 2500 Other: Voiding Method Toilet - Constitutional General appearance: Present: average body habitus, cooperative, obese - EENT Eyes: Present: PERRLA ENT: Present: hearing grossly normal - Neck Neck: Present: normal ROM - Respiratory Respiratory: bilateral: CTA - Cardiovascular Rhythm: regular Heart sounds: normal: S1, S2 - Gastrointestinal General gastrointestinal: Present: normal bowel sounds - Integumentary Integumentary Comment(s): Low transverse incision well approximated, Steri-Strips applied, no redness or drainage. - Neurologic Neurologic: Present: CNII-XII intact - Musculoskeletal Musculoskeletal: Present: strength equal bilaterally - Psychiatric Psychiatric: Present: A&O x's 3, appropriate affect, intact judgment & insight - Labs CBC & Chem 7: 12/16/16 05:45 12/19/16 06:51 Labs: Abnormal Lab Results - Last 24 Hours (Table) 12/18/16 12/19/16 Range/Units 21:31 06:51 Potassium 3.4 L (3.5-5.1) mmol/L Creatinine 0.49 L (0.52-1.04) mg/dL POC Glucose (mg/dL) 230 H (75-99) mg/dL AST 41 H (14-36) U/L ALT 53 H (9-52) U/L Total Protein 5.3 L (6.3-8.2) g/dL Albumin 3.2 L (3.5-5.0) g/dL Assessment and Plan Plan: Discontinue Garsia. Discontinue epidural. Hep-Lock IV. Advance activity, may shower. Regular diet. Likely discharge home tomorrow on [id number] Advil , Aleve, or Motrin products. Will follow-up with me in the office in 2 weeks. Time with Patient: Less than 30
[2016-12-19 08:26] LABS: Basophils % (A) 0 %; CH 32.8; CHCM 36.5; Eosinophils % (A) 0 %; HCT 37.3 % (34.0-46.0); HDW 2.77; HGB 12.8 gm/dL (11.4-16.0); Luc % (Auto) 1; Lymphocytes # (A) 2.2 k/uL (1.0-4.8); Lymphocytes % (A) 26 %; MCH 31.1 pg (25.0-35.0); MCHC 34.4 g/dL (31.0-37.0); MCV 90.2 fL (80.0-100.0); Mean Platelet Volume 7.6; Monocytes # (A) 0.3 k/uL (0-1.0); Monocytes % (A) 4 %; Neutrophils % (A) 69 %; RBC 4.13 m/uL (3.80-5.40); RDW 13.1 % (11.5-15.5); WBC 8.7 k/uL (3.8-10.6); WBC (Perox) 9.15
[2016-12-19] MEDS: INSULIN LISPRO (humaLOG) 300 UNIT/3 ML VIAL SQ SCH ×2 (08:35→12:51)
[2016-12-19] MEDS: ASPIRIN 325 MG TAB PO SCH (08:37)
[2016-12-19] MEDS: DULoxetine HCL 30 MG CAPSULE.DR PO SCH (08:38)
--- NOTE | 2016-12-19 09:50 | P.PN ---
Progress Note - Text 12/19 51-year-old female status post exploratory lap with Dr. Arredondo. Patient seen and evaluated this morning for pain control, VAS of 2, no complains of nausea vomiting, no complains of sensory or motor deficit. Epidural DC'd
[2016-12-19 11:45] LABS: Glucose,Whole Blood 100 mg/dL (75-99)
[2016-12-19 15:46] VITALS: BP 117/56; PULSE 61; RESP 16; TEMP 96.3
[2016-12-19] MEDS: ALPRAZolam 0.5 MG TAB PO SCH (17:02)
[2016-12-19 17:16] LABS: Glucose,Whole Blood 128 mg/dL (75-99)
--- NOTE | 2016-12-19 19:57 | P.DS ---
Providers Date of admission: 12/18/16 17:29 Attending physician: Leo Hines Primary care physician: Leo Hines Hospital Course: 51-year-old female that is admitted to the hospital with complains of right upper quadrant pain. Patient was noted to have biliary dyskinesia. Patient was also thereafter noted to have a large right cystic pelvic mass. Patient is postoperative day 1 from a cholecystectomy and right cystic mass removal. Her graft currently patient is comfortable on epidural. Denies having any chest pain, cough, nausea or episodes of emesis. Patient has not been passing gas yet. States to be tolerating clear liquid diet. Day of discharge Pt tolerated diet, was passing gas and had a Bm S/p removal of baugh and was urinating without difficulty. - Exam Gen. appearance oriented 3 Lungs good air entry clear to auscultation no rhonchi or wheezing noted Heart S1-S2 heard regular rate and rhythm no murmurs appreciable Abdomen postsurgical changes noted. Soft. Bowel sounds are hypoactive Baugh catheter in place Neurologically no focal motor or sensory deficits noted. - Labs CBC & Chem 7: 12/16/16 05:45 12/16/16 05:45 Assessment and Plan Plan: #1 abdominal pain likely secondary to biliary dyskinesia #2 large right cystic pelvic mass status post removal #3 history of ongoing tobacco use #4 mild COPD suspected Follow up with Dr Arnulfo Desir. Pain meds were given by gen surgery. Plan - Discharge Summary New Discharge Prescriptions: HYDROcodone/APAP 7.5-325MG [[place] 7.5-325] 1 tab PO Q6HR PRN #28 tab PRN Reason: Pain Discharge Medication List Montelukast [Singulair] 10 mg PO HS 08/09/15 [History] ALPRAZolam [Xanax] 0.5 mg PO BID 12/16/16 [History] DULoxetine HCL [Cymbalta] 30 mg PO DAILY 12/16/16 [History] Fluocinonide 1 applic TOPICAL BID 12/16/16 [History] Ibuprofen [Motrin] 800 mg PO TID PRN 12/16/16 [History] metFORMIN HCL [Glucophage] 500 mg PO DAILY 12/16/16 [History] traMADol HCL [Ultram] 50 mg PO Q6HR PRN 12/16/16 [History] HYDROcodone/APAP 7.5-325MG [[place] 7.5-325] 1 tab PO Q6HR PRN #28 tab 12/19/16 [ Rx] Follow up Appointment(s)/Referral(s): Leo Hines MD [Primary Care Provider] - 12/22/16 11:30 am Tova Arredondo MD [STAFF PHYSICIAN] - 1 Week (Office closed. Patient to call and schedule follow up appointment.) Lucho Desir MD [STAFF PHYSICIAN] - 12/23/16 10:15 am Patient Instructions/Handouts: *Surgery [facility] - Laparoscopic Cholecystectomy Discharge Instructions Activity/Diet/Wound Care/Special Instructions: No heavy lifting, pushing, or pulling items greater than 10 pounds. Consistent carbohydrate diet, low fat Shower daily, no soaking in bath tubs, pools, or hot tubs. No driving while taking pain medication. Notify surgeon with any signs or symptoms of infection, increased pain, or not tolerating diet. Discharge Disposition: HOME SELF-CARE
[2016-12-22 14:56] LABS: Mis test requested (Blood) OVA1
== END 2016-12-19 17:27 | disposition home or self-care (01) | DRG 419 ==
LOC: EC 05:26 → 3OBS 10:04 → 6PED 12-18 10:15 → 3SUR 12-18 14:38 → OBSVTOIN 12-18 17:29
PROVIDERS: ADMIT Family Medicine; ATTEND Family Medicine
PROC: 0UT00ZZ Resection of Right Ovary, Open Approach (ICD-10-PCS; 2016-12-18)
PROC: 3E1M38X Irrigation of Peritoneal Cavity using Irrigating Substance, Percutaneous Approach, Diagnostic (ICD-10-PCS; 2016-12-18)
PROC: 0FT44ZZ Resection of Gallbladder, Percutaneous Endoscopic Approach (ICD-10-PCS; principal; 2016-12-18 12:00)
PROC: 0UT50ZZ Resection of Right Fallopian Tube, Open Approach (ICD-10-PCS; 2016-12-18 12:00)
DX: K82.8 Other specified diseases of gallbladder (principal); K76.0 Fatty (change of) liver, not elsewhere classified; I10 Essential (primary) hypertension; F32.9 Major depressive disorder, single episode, unspecified; E11.9 Type 2 diabetes mellitus without complications; E66.9 Obesity, unspecified; E78.00 Pure hypercholesterolemia, unspecified; E78.5 Hyperlipidemia, unspecified; F12.90 Cannabis use, unspecified, uncomplicated; F17.200 Nicotine dependence, unspecified, uncomplicated; F41.9 Anxiety disorder, unspecified; J44.9 Chronic obstructive pulmonary disease, unspecified; J45.909 Unspecified asthma, uncomplicated; K21.9 Gastro-esophageal reflux disease without esophagitis; M79.7 Fibromyalgia; N83.201 Unspecified ovarian cyst, right side; K44.9 Diaphragmatic hernia without obstruction or gangrene; L71.9 Rosacea, unspecified; Z86.14 Personal history of Methicillin resistant Staphylococcus aureus infection; Z79.899 Other long term (current) drug therapy; Z79.84 Long term (current) use of oral hypoglycemic drugs; Z88.8 Allergy status to other drugs, medicaments and biological substances; Z68.33 Body mass index [BMI] 33.0-33.9, adult; Z82.49 Family history of ischemic heart disease and other diseases of the circulatory system
CPT/HCPCS: 36415; 51798; 71020; 71275; 74000; 75635; 76705; 76830; 76856; 78227; 80053; 80061; 81025; 81503; 82150; 82272; 82550; 82553; 83036; 83690; 83735; 83880; 84484; 85025; 85379; 85610; 85730; 88108; 88304; 88305; 88307; 93005; 93306; 96361; 96374; 96375; 99285

== ENCOUNTER → 2017-01-13 | Outpatient (CLI) | payer BC ==
--- NOTE | 2017-01-13 11:17 | XR ---
EXAMINATION TYPE: XR abdomen 1V DATE OF EXAM: 01/13/2017 11:00 AM CLINICAL HISTORY: Abdominal pain not further specified. TECHNIQUE: 2 supine KUB images of the abdomen are obtained. COMPARISON: Abdominal x-ray and CT abdomen and pelvis December 16, 2016. FINDINGS: Scattered gas is seen in non-distended small bowel loops. Gas and fecal material is seen in non-distended colon. Cholecystectomy clips are noted. No suspicious calcifications are seen. Lung bases are clear. Visualized osseous structures are intact. IMPRESSION: Overall nonobstructive bowel gas pattern.
== END | disposition home or self-care (01) ==
LOC: RADXRMAIN 10:39
PROVIDERS: ATTEND Physician Assistant
DX: R10.9 Unspecified abdominal pain (principal)
CPT/HCPCS: 74000

== ENCOUNTER 2017-01-21 10:18 | Day surgery (SDC) | payer BC ==
[2017-01-16 11:55] VITALS: BMI 33.5
[~2017-01-21 10:18] MED LIST: LACTATED RINGERS 1,000 ML IV SCH; LIDOCAINE 1% 20 ML VIAL (10MG/ML) FOR IV START INTRADERMA PRN
[2017-01-21 11:13] VITALS: TEMP 97.6
[2017-01-21] MEDS ORDERED: LIDOCAINE 1% 20 ML VIAL (10MG/ML) FOR IV START INTRADERMA ONE (11:13)
[2017-01-21] MEDS ORDERED: LIDOCAINE 1% INJ 10MG/ML (20 ML MDV) ONE (11:37)
[2017-01-21] MEDS ORDERED: GLYCOPYRROLATE 0.2 MG/ML 2 ML VIAL ONE (11:37)
[2017-01-21] MEDS ORDERED: PROPOFOL 10 MG/ML 20 ML VIAL IV ONE (11:37)
--- NOTE | 2017-01-21 11:39 | P.GSHP ---
History of Present Illness H&P Date: 01/21/17 Chief Complaint: GERD, screening colonoscopy This a 51-year-old female who's had complaints of GERD. She will stay for EGD and screening colonoscopy. - Constitutional Constitutional: Reports as per HPI Past Medical History Past Medical History: COPD, Diabetes Mellitus, Fibromyalgia, GERD/Reflux, Hyperlipidemia, Hypertension, Liver Disease, Skin Disorder Additional Past Medical History / Comment(s): Past HTN and elevated cholesterol- pt took self off medications for this, abdominal cellulitis, fatty liver, bronchitis, uti, hiatal hernia, occasional bilateral tinnitis, rosecea. History of Any Multi-Drug Resistant Organisms: MRSA Date of last positivie culture/infection: 08/24/2015 MDRO Source:: abdomen; groin Past Surgical History: Cholecystectomy Additional Past Surgical History / Comment(s): I & D OF LABIAL ABSCESS/ fred groin abcess; R Ovarian cyst removal Past Anesthesia/Blood Transfusion Reactions: Motion Sickness, Postoperative Nausea & Vomiting (PONV) Additional Past Anesthesia/Blood Transfusion Reaction / Comment(s): no sx hx Past Psychological History: Anxiety, Depression, Panic Disorder Additional Psychological History / Comment(s): Pt states she has increased depression which she believes may be r/t deaths in the family. She denies suicidal thoughts or wishing she were . She uses no assistive device. She does not drive, her spouse takes her to [employer]. Smoking Status: Current every day smoker Past Alcohol Use History: None Reported, Occasional Additional Past Alcohol Use History / Comment(s): started smoking at age 10 smokes 1 ppd, occ use of alcohol in the past but none for years. Occ smokes marijuana. Past Drug Use History: Marijuana Additional Drug Use History / Comment(s): occasionally - Past Family History Father History Unknown: Yes Additional Family Medical History / Comment(s): pacemaker,anxiety,depression Mother History Unknown: Yes Family Medical History: Diabetes Mellitus, Hypertension Additional Family Medical History / Comment(s): depression/anxiety Medications and Allergies Home Medications Medication Instructions Recorded Confirmed Type Montelukast [Singulair] 10 mg PO HS 08/09/15 01/16/17 History ALPRAZolam [Xanax] 0.5 mg PO BID 12/16/16 01/16/17 History DULoxetine HCL [Cymbalta] 30 mg PO DAILY 12/16/16 01/16/17 History Ibuprofen [Motrin] 800 mg PO TID PRN 12/16/16 01/16/17 History metFORMIN HCL [Glucophage] 500 mg PO BID 12/16/16 01/16/17 History traMADol HCL [Ultram] 50 mg PO Q6HR PRN 12/16/16 01/16/17 History Albuterol Inhaler [Ventolin Hfa 1 - 2 puff INHALATION Q6HR PRN 01/16/17 History Inhaler] Ascorbic Acid [Vitamin C] 1,000 mg PO DAILY 01/16/17 01/16/17 History Aspirin 325 mg PO DAILY 01/16/17 01/16/17 History Cholecalciferol [Vitamin D3] 2,000 unit PO DAILY 01/16/17 01/16/17 History Cranberry Fruit Concentrate 450 mg PO DAILY 01/16/17 01/16/17 History [Cranberry] Fluticasone/Vilanterol [Breo 1 dose INHALATION DAILY 01/16/17 01/16/17 History Ellipta 100-25 Mcg Inhaler] Iron Ag/C/B12/Ca/Suc.acid/Stom 1 each PO DAILY 01/16/17 01/16/17 History [Chromagen Lf] Magnesium Oxide [Mag-Ox] 250 mg PO DAILY 01/16/17 01/16/17 History Multivitamins, Thera [Multivitamin] 1 tab PO DAILY 01/16/17 01/16/17 History [place]-3 Fatty Acids/Fish Oil [Fish 1 each PO DAILY 01/16/17 01/16/17 History Oil 1,000 mg Softgel] Ranitidine HCl [Zantac] 150 mg PO HS 01/16/17 01/16/17 History Allergies Allergy/AdvReac Type Severity Reaction Status Date / Time pregabalin [From Lyrica] Allergy Mild Rash/Hives Verified 01/21/17 10:49 Surgical - Exam Vital Signs Temp Pulse Resp BP Pulse Ox 97.6 F 53 L 16 118/72 98 01/21/17 11:12 01/21/17 11:12 01/21/17 11:12 01/21/17 11:12 01/21/17 11:12 - General well developed, no distress - Eyes PERRL - ENT normal pinna - Neck no masses - Respiratory normal expansion - Cardiovascular Rhythm: regular - Abdomen Abdomen: soft, non tender Assessment and Plan Plan: GERD. We'll perform EGD PERFORM screening colonoscopy.
--- NOTE | 2017-01-21 11:56 | P.OP ---
Date of Procedure: 01/21/17 Preoperative Diagnosis: GERD Screening colonoscopy Postoperative Diagnosis: Antral gastritis Hiatal hernia Esophagitis Diverticulosis Procedure(s) Performed: EGD Colonoscopy Anesthesia: MAC Surgeon: Lucho Desir Pathology: other (Antrum, esophagus) Condition: stable Disposition: PACU Description of Procedure: The patient's placed on the endoscopy table in the lateral position. She received IV sedation. The gastroscope some placed oropharynx passed in the esophagus into the stomach. The scope was then placed through the pylorus. The first and second portion of the duodenum appeared normal. The scope was then brought back the antrum and this was mildly inflamed. A biopsies was performed. The scope was retroflexed and remainder of the stomach appeared normal. There was a moderate size hiatal hernia. The GE junction was at 40 cm. The distal esophagus appeared inflamed. This area was biopsied. The proximal esophagus appeared normal. Scope was withdrawn for patient. Next digital rectal exam was performed which revealed no abnormalities. The flexible colonoscope was then placed patient anus passed throughout the entire colon. The ileocecal valve was visualized. The cecum, ascending and transverse colon appeared normal. In the descending and sigmoid colon is mild diverticular changes. The scope was then brought back the rectum and this appeared normal. Scope was withdrawn for patient.
[2017-01-21 12:05] VITALS: BP 99/56; PULSE 65; RESP 18
== END 2017-01-21 12:54 | disposition home or self-care (01) ==
LOC: ORWHC2ENDO 10:18
PROVIDERS: ATTEND Surgery
DX: Z12.11 Encounter for screening for malignant neoplasm of colon (principal); K29.50 Unspecified chronic gastritis without bleeding; K21.0 Gastro-esophageal reflux disease with esophagitis; K20.0 Eosinophilic esophagitis; K57.30 Diverticulosis of large intestine without perforation or abscess without bleeding; K44.9 Diaphragmatic hernia without obstruction or gangrene; F17.200 Nicotine dependence, unspecified, uncomplicated; E11.9 Type 2 diabetes mellitus without complications; Z79.84 Long term (current) use of oral hypoglycemic drugs; J44.9 Chronic obstructive pulmonary disease, unspecified; I10 Essential (primary) hypertension; E78.5 Hyperlipidemia, unspecified; F32.9 Major depressive disorder, single episode, unspecified; F41.9 Anxiety disorder, unspecified; F41.0 Panic disorder [episodic paroxysmal anxiety]; M79.7 Fibromyalgia; J45.909 Unspecified asthma, uncomplicated; Z79.82 Long term (current) use of aspirin; Z79.51 Long term (current) use of inhaled steroids; Z79.899 Other long term (current) drug therapy; Z88.8 Allergy status to other drugs, medicaments and biological substances
CPT/HCPCS: 88305; 88312; 88342; 43239; J2001; J2704; G0121; 45378

== ENCOUNTER 2017-02-12 07:30 | Inpatient (IN) | payer BC ==
[2017-02-06 11:55] VITALS: BMI 32.1
[~2017-02-12 07:30] MED LIST changes: +DEXAMETHASONE SOD PHOSPHATE 10 MG/ML 1 ML VIAL IV ONE; +HEPARIN SODIUM,PORCINE 5,000 UNIT/ML 1 ML VIAL SQ ONE; -LACTATED RINGERS 1,000 ML IV SCH; -LIDOCAINE 1% 20 ML VIAL (10MG/ML) FOR IV START INTRADERMA PRN; +MIDAZOLAM 2 MG/2 ML VIAL IV PRN; +ONDANSETRON 4 MG/2 ML VIAL IVP ONE; +SCOPOLAMINE 1.5MG/72HR PATCH TRANSDERM ONE; +ceFAZolin 2 GM in SODIUM CHLORIDE 0.9% 100 ML IVPB ONE
[2017-02-12 08:36] LABS: Glucose,Whole Blood 142 mg/dL (75-99)
[2017-02-12] MEDS: LACTATED RINGERS 1,000 ML IV SCH (08:48)
[2017-02-12] MEDS ORDERED: LIDOCAINE 1% 20 ML VIAL (10MG/ML) FOR IV START INTRADERMA ONE (08:49)
--- NOTE | 2017-02-12 08:54 | P.GSHP ---
History of Present Illness H&P Date: 02/12/17 Chief Complaint: GERD This a 51-year-old female referred from Dr. Leo Hines.The patient has had long -standing problems with reflux esophagitis. The patient underwent recent EGD is found have evidence of esophagitis. Patient has been well informed on the procedure of laparoscopic Garrick fundoplication. The patient is aware the risk of the conversion to the open procedure, risk of injury to the stomach, liver and spleen. The patient is also a risk of recurrent GERD and dysphagia symptoms. The patient understands there is a postoperative diet of full liquids for 2 weeks after surgery. Past Medical History Past Medical History: COPD, Diabetes Mellitus, Fibromyalgia, GERD/Reflux, Hyperlipidemia, Hypertension, Liver Disease, Skin Disorder Additional Past Medical History / Comment(s): abdominal cellulitis, fatty liver , bronchitis, uti, hiatal hernia, occasional bilateral tinnitis, rosecea., RINGING IN EARS, STATES ALLERGIES AND SEEING ENT FOR TESTING. History of Any Multi-Drug Resistant Organisms: MRSA Date of last positivie culture/infection: 08/24/15 MDRO Source:: abdomen Past Surgical History: Cholecystectomy Additional Past Surgical History / Comment(s): I & D OF LABIAL ABSCESS/, GROIN ABSCESS FROM INGROWN HAIR. , RIGHT OVARIAN CYST AND ANNE (12/18/16) Past Anesthesia/Blood Transfusion Reactions: Motion Sickness, Postoperative Nausea & Vomiting (PONV) Additional Past Anesthesia/Blood Transfusion Reaction / Comment(s): no sx hx Past Psychological History: Anxiety, Depression Additional Psychological History / Comment(s): . Smoking Status: Current every day smoker Past Alcohol Use History: Rare Additional Past Alcohol Use History / Comment(s): SMOKES 1 PPD, STARTED SMOKING IN HER 20'S. STATES INSTRUCTED TO STOP SMOKING 2 DAYS PRIOR TO HER SURGERY BY DR NAVA. SMOKING FOR APPROX 32 YEARS. Past Drug Use History: Marijuana Additional Drug Use History / Comment(s): OCCASIONAL MARIJUANA USE. - Past Family History Father History Unknown: Yes Additional Family Medical History / Comment(s): pacemaker,anxiety,depression Mother History Unknown: Yes Family Medical History: Diabetes Mellitus, Hypertension Additional Family Medical History / Comment(s): depression/anxiety Medications and Allergies Home Medications Medication Instructions Recorded Confirmed Type ALPRAZolam [Xanax] 0.5 mg PO BID 12/16/16 02/06/17 History DULoxetine HCL [Cymbalta] 30 mg PO DAILY 12/16/16 02/06/17 History Ibuprofen [Motrin] 800 mg PO TID PRN 12/16/16 02/06/17 History metFORMIN HCL [Glucophage] 500 mg PO BID 12/16/16 02/06/17 History traMADol HCL [Ultram] 50 mg PO Q6HR PRN 12/16/16 02/06/17 History Albuterol Inhaler [Ventolin Hfa 1 - 2 puff INHALATION Q6HR PRN 01/16/17 History Inhaler] Ascorbic Acid [Vitamin C] 1,000 mg PO DAILY 01/16/17 02/06/17 History Aspirin 325 mg PO DAILY 01/16/17 02/06/17 History Cholecalciferol [Vitamin D3] 2,000 unit PO DAILY 01/16/17 02/06/17 History Cranberry Fruit Concentrate 450 mg PO DAILY 01/16/17 02/06/17 History [Cranberry] Fluticasone/Vilanterol [Breo 1 dose INHALATION DAILY 01/16/17 02/06/17 History Ellipta 100-25 Mcg Inhaler] Iron Ag/C/B12/Ca/Suc.acid/Stom 1 each PO DAILY 01/16/17 02/06/17 History [Chromagen Lf] Magnesium Oxide [Mag-Ox] 250 mg PO DAILY 01/16/17 02/06/17 History Multivitamins, Thera [Multivitamin] 1 tab PO DAILY 01/16/17 02/06/17 History [place]-3 Fatty Acids/Fish Oil [Fish 1 each PO DAILY 01/16/17 02/06/17 History Oil 1,000 mg Softgel] Acetaminophen Tab [Tylenol Tab] 1,000 mg PO Q6HR PRN 02/06/17 02/06/17 History Bronkaid Otc 1 tab PO TID PRN 02/06/17 02/12/17 History Fluticasone Nasal [place] [Flonase 2 spr EA NOSTRIL DAILY 02/06/17 02/06/17 History Nasal [place]] L.acidoph,Paracasei, B.lactis PO DAILY 02/12/17 History [Probiotic] Wheat Dextrin [Benefiber] PO DAILY 02/12/17 History Allergies Allergy/AdvReac Type Severity Reaction Status Date / Time pregabalin [From Lyrica] Allergy Mild Rash/Hives Verified 02/12/17 08:14 Surgical - Exam Vital Signs Temp Pulse Resp BP Pulse Ox 97.9 F 50 L 16 112/68 95 02/12/17 08:12 02/12/17 08:12 02/12/17 08:12 02/12/17 08:12 02/12/17 08:12 - General well developed, no distress - Eyes PERRL - ENT normal pinna - Neck no masses - Respiratory normal expansion - Cardiovascular Rhythm: regular - Abdomen Abdomen: soft, non tender Results - Labs Abnormal Lab Results - Last 24 Hours (Table) 02/12/17 Range/Units 08:34 POC Glucose (mg/dL) 142 H (75-99) mg/dL Assessment and Plan Plan: GERD. We'll perform laparoscopic Garrick fundal plication.
[2017-02-12] MEDS ORDERED: MIDAZOLAM 2 MG/2 ML VIAL ONE (08:59)
[2017-02-12] MEDS ORDERED: NEOSTIGMINE 1 MG/ML 10 ML VIAL ONE (08:59)
[2017-02-12] MEDS ORDERED: SUCCINYLCHOLINE CHLORIDE 100 MG/5 ML SYR IV ONE (08:59)
[2017-02-12] MEDS ORDERED: PROPOFOL 10 MG/ML 20 ML VIAL IV ONE (08:59)
[2017-02-12] MEDS ORDERED: fentaNYL (PF) 50 MCG/ML 2 ML AMP ONE (08:59)
[2017-02-12] MEDS ORDERED: HYDROmorphone (PF) 1 MG/ML ONE (08:59)
[2017-02-12] MEDS ORDERED: LIDOCAINE 1% INJ 10MG/ML (20 ML MDV) ONE (08:59)
[2017-02-12] MEDS ORDERED: VECURONIUM 10 MG VIAL IV ONE (08:59)
[2017-02-12] MEDS ORDERED: GLYCOPYRROLATE 0.2 MG/ML 2 ML VIAL ONE (08:59)
[2017-02-12] MEDS ORDERED: BUPIVACAIN-EPI 0.25%-1:200,000 30 ML VIAL SQ ONE (09:27)
[2017-02-12] MEDS ORDERED: HYDROcodone/APAP 5-325MG 1 EACH TAB PO PRN (10:00)
[2017-02-12] MEDS ORDERED: LACTATED RINGERS 1,000 ML IV ONE ×2 (10:00→11:00)
[2017-02-12] MEDS ORDERED: ONDANSETRON 4 MG/2 ML VIAL IVP PRN (10:00)
[2017-02-12] MEDS ORDERED: ACETAMINOPHEN TAB 325 MG TAB PO PRN (10:00)
[2017-02-12] MEDS ORDERED: NALOXONE 0.4 MG/ML 1 ML VIAL IV PRN (10:00)
--- NOTE | 2017-02-12 10:00 | P.OP ---
Date of Procedure: 02/12/17 Preoperative Diagnosis: GERD Postoperative Diagnosis: GERD Procedure(s) Performed: Garrick fundoplication Anesthesia: JAZZMINE Surgeon: Lucho Desir Estimated Blood Loss (ml): 5 Pathology: none sent Condition: stable Disposition: PACU Description of Procedure: HThe patient was placed on the operating table in the supine position. The patient received general anesthesia. And was placed in dorsal lithotomy position. The patient was prepped and draped in the usual sterile fashion. The skin incision sites were anesthetized with 1% local Xylocaine. The skin was incised in the left periumbilical area and then using a blade less 5 mm trocar under direct visualization panel cavity was entered. After adequate insufflation the laparoscope was then placed into the peritoneal cavity. Next a 5 mm trochars placed in the right epigastric position. Another 5 millimeter trocar the right lateral position. Another 5 millimeter trocar in the left lateral position a 5 mm trocar is placed in the left epigastric position. And then the initial 5 mm trocar was exchanged for a 10 mm trocar. The left lateral lobe liver was retracted. The hernia was seen. The crural defect was then dissected using the Harmonic scissors device. A 360 crural dissection was performed the esophagus stomach was reduced back into the peritoneal Cavity. The crural defect was then closed using 2-0 Ethibond suture. Next the fundus of the stomach was mobilized using the [place] scissors device. and then a 58-Azeri bougie dilator was placed oropharynx passed into the esophagus and stomach the fundal plication wrap was then performed by grasping the fundus posteriorly and bringing it around the esophagus and stomach fundoplication was then performed using 2-0 Ethibond suture. Care was taken that the fundal location rested over top of the intra-abdominal esophagus. There was no injury seen to the stomach or esophagus. The dilator was then withdrawn. The abdomen was irrigated there is no bleeding seen. The trochars were then withdrawn and then skin incision sites were closed using 3-0 Monocryl suture Steri-Strips are applied. Patient thought procedure well and sent to recovery room in stable condition.
[2017-02-12] MEDS: HYDROmorphone 1 MG/ML 1 ML SYRINGE IVP PRN ×4 (10:41→22:58)
[2017-02-12 11:00] LABS: Glucose,Whole Blood 212 mg/dL (75-99)
[2017-02-12] MEDS ORDERED: INSULIN LISPRO (humaLOG) 300 UNIT/3 ML VIAL SQ ONE (11:01)
[2017-02-12] MEDS ORDERED: ALBUTEROL NEBULIZED 2.5 MG/3 ML INHALATION PRN (13:17)
--- NOTE | 2017-02-12 13:27 | P.CONS ---
History of Present Illness - History of Present Illness 51-year-old female is on postoperative for laparoscopic ally fundal plication. Patient has had a party plan sales host/hostess problem with the GERD and esophagitis. Patient resting in bed right now comfortably with good pain control Review of Systems Gastrointestinal: Reports heartburn Past Medical History Past Medical History: COPD, Diabetes Mellitus, Fibromyalgia, GERD/Reflux, Hyperlipidemia, Hypertension, Liver Disease, Skin Disorder Additional Past Medical History / Comment(s): abdominal cellulitis, fatty liver , bronchitis, uti, hiatal hernia, occasional bilateral tinnitis, rosecea., RINGING IN EARS, STATES ALLERGIES AND SEEING ENT FOR TESTING. History of Any Multi-Drug Resistant Organisms: MRSA Year Discovered:: 08/24/15 MDRO Source:: abdomen Past Surgical History: Cholecystectomy Additional Past Surgical History / Comment(s): I & D OF LABIAL ABSCESS/, GROIN ABSCESS FROM INGROWN HAIR. , RIGHT OVARIAN CYST AND ANNE (12/18/16) Past Anesthesia/Blood Transfusion Reactions: Motion Sickness, Postoperative Nausea & Vomiting (PONV) Additional Past Anesthesia/Blood Transfusion Reaction / Comm: no sx hx Past Psychological History: Anxiety, Depression Additional Psychological History / Comment(s): . Smoking Status: Former smoker Past Alcohol Use History: Rare Additional Past Alcohol Use History / Comment(s): SMOKES 1 PPD, STARTED SMOKING IN HER 20'S. STATES INSTRUCTED TO STOP SMOKING 2 DAYS PRIOR TO HER SURGERY BY DR NAVA. SMOKING FOR APPROX 32 YEARS. Past Drug Use History: Marijuana Additional Drug Use History / Comment(s): OCCASIONAL MARIJUANA USE. - Past Family History Father History Unknown: Yes Additional Family Medical History / Comment(s): pacemaker,anxiety,depression Mother History Unknown: Yes Family Medical History: Diabetes Mellitus, Hypertension Additional Family Medical History / Comment(s): depression/anxiety Medications and Allergies Home Medications Medication Instructions Recorded Confirmed Type ALPRAZolam [Xanax] 0.5 mg PO BID 12/16/16 02/12/17 History DULoxetine HCL [Cymbalta] 30 mg PO DAILY 12/16/16 02/12/17 History Ibuprofen [Motrin] 800 mg PO TID PRN 12/16/16 02/12/17 History metFORMIN HCL [Glucophage] 500 mg PO BID 12/16/16 02/12/17 History traMADol HCL [Ultram] 50 mg PO Q6HR PRN 12/16/16 02/12/17 History Albuterol Inhaler [Ventolin Hfa 2 puff INHALATION RT-Q6H PRN 01/16/17 02/12/17 History Inhaler] Ascorbic Acid [Vitamin C] 1,000 mg PO DAILY 01/16/17 02/12/17 History Aspirin 325 mg PO DAILY 01/16/17 02/12/17 History Cholecalciferol [Vitamin D3] 2,000 unit PO DAILY 01/16/17 02/12/17 History Cranberry Fruit Concentrate 450 mg PO DAILY 01/16/17 02/12/17 History [Cranberry] Fluticasone/Vilanterol [Breo 1 dose INHALATION DAILY 01/16/17 02/12/17 History Ellipta 100-25 Mcg Inhaler] Iron Ag/C/B12/Ca/Suc.acid/Stom 1 tab PO DAILY 01/16/17 02/12/17 History [Chromagen Lf] Magnesium Oxide [Mag-Ox] 250 mg PO DAILY 01/16/17 02/12/17 History Multivitamins, Thera [Multivitamin] 1 tab PO DAILY 01/16/17 02/12/17 History [place]-3 Fatty Acids/Fish Oil [Fish 1 cap PO DAILY 01/16/17 02/12/17 History Oil 1,000 mg Softgel] Acetaminophen Tab [Tylenol Tab] 1,000 mg PO Q6HR PRN 02/06/17 02/12/17 History Bronkaid Otc 1 tab PO TID PRN 02/06/17 02/12/17 History Fluticasone Nasal [place] [Flonase 2 spr EA NOSTRIL DAILY 02/06/17 02/12/17 History Nasal [place]] L.acidoph,Paracasei, B.lactis 1 cap PO DAILY 02/12/17 02/12/17 History [Probiotic] Wheat Dextrin [Benefiber] 1 pack PO DAILY 02/12/17 02/12/17 History Allergies Allergy/AdvReac Type Severity Reaction Status Date / Time pregabalin [From Lyrica] Allergy Mild Rash/Hives Verified 02/12/17 11:57 Physical Exam Vitals: Vital Signs Temp Pulse Pulse Resp BP BP Pulse Ox 02/12/17 12:20 76 18 133/72 96 02/12/17 12:05 71 18 154/54 96 02/12/17 11:35 97.4 F L 63 17 137/78 92 L 02/12/17 11:09 72 16 114/59 96 02/12/17 10:54 70 16 103/51 96 02/12/17 10:39 72 18 107/52 99 02/12/17 10:24 75 16 118/59 100 02/12/17 10:09 98.4 F 91 14 142/67 100 02/12/17 08:12 97.9 F 50 L 16 112/68 95 Intake and Output 02/11/17 02/12/17 02/12/17 22:59 06:59 14:59 Intake Total 1150 Output Total 5 Balance 1145 Intake: IV 1150 Output: Estimated Blood Loss 5 Other: Weight 84.822 kg Patient Weight 02/13/17 06:59 Weight 84.822 kg - Constitutional General appearance: obese - EENT Eyes: PERRLA Ears: bilateral: normal - Neck Neck: normal ROM - Respiratory Respiratory: bilateral: CTA - Cardiovascular Rhythm: regular - Gastrointestinal General gastrointestinal: soft - Integumentary Integumentary: normal - Neurologic Neurologic: CNII-XII intact - Musculoskeletal Musculoskeletal: gait normal - Psychiatric Psychiatric: A&O x's 3, appropriate affect, intact judgment & insight Results Labs: Abnormal Lab Results - Last 24 Hours (Table) 02/12/17 02/12/17 Range/Units 08:34 10:51 POC Glucose (mg/dL) 142 H 212 H (75-99) mg/dL Assessment and Plan Plan: Assessment history of GERD with esophagitis post laparoscopic Ally fundal plication history of COPD diabetes type II fibromyalgia hypertension hyperlipidemia fatty liver disease nicotine use occasional marijuana use Plan reordered home medication will monitor for changes in condition
[2017-02-12] MEDS: KETOROLAC 30 MG/ML 1 ML VIAL IVP SCH ×2 (14:45→20:50)
--- NOTE | 2017-02-12 15:44 | FL ---
EXAMINATION TYPE: FL UGI w esophagus DATE OF EXAM: 02/12/2017 3:31 PM COMPARISON: NONE HISTORY: Postop Lorraine fundoplication. TECHNIQUE: A single/double contrast UGI study is performed. FINDINGS: The patient drank contrast with ease. The esophagus distended normally with air and contras t. There is prompt egress of contrast from the esophagus into the stomach. There is no evidence of ex travasation. No free air is seen. IMPRESSION: STATUS POST LORRAINE FUNDOPLICATION.
[2017-02-12] MEDS: SYMBICORT 80-4.5 MCG INHALER INHALATION SCH (20:24)
[2017-02-12] MEDS: ALPRAZolam 0.5 MG TAB PO SCH (20:51)
[2017-02-12] MEDS: metFORMIN 500 MG TAB PO SCH (20:51)
[2017-02-13] MEDS: KETOROLAC 30 MG/ML 1 ML VIAL IVP SCH ×3 (03:04→15:20)
[2017-02-13] MEDS: HYDROmorphone 1 MG/ML 1 ML SYRINGE IVP PRN (06:33)
[2017-02-13] MEDS: LACTATED RINGERS 1,000 ML IV SCH (08:29)
[2017-02-13] MEDS: ALPRAZolam 0.5 MG TAB PO SCH (08:31)
[2017-02-13] MEDS: metFORMIN 500 MG TAB PO SCH (08:31)
[2017-02-13] MEDS: SYMBICORT 80-4.5 MCG INHALER INHALATION SCH (08:50)
[2017-02-13] MEDS ORDERED: DULoxetine HCL 30 MG CAPSULE.DR PO SCH (09:00)
[2017-02-13] MEDS ORDERED: FLUTICASONE 50MCG/SPRAY NASAL 16GM EA NOSTRIL SCH (09:00)
[2017-02-13] MEDS ORDERED: MULTIVITAMINS, THERA 1 EACH TAB PO SCH (12:00)
[2017-02-13] MEDS ORDERED: CHOLECALCIFEROL 1,000 UNIT TAB PO SCH (12:00)
[2017-02-13] MEDS ORDERED: ASCORBIC ACID 500 MG TAB PO SCH (12:00)
[2017-02-13 12:17] LABS: Anion Gap 11 mmol/L; Blood Urea Nitrogen 13 mg/dL (7-17); Calcium 9.4 mg/dL (8.4-10.2); Carbon Dioxide 28 mmol/L (22-30); Chloride 104 mmol/L (98-107); Glucose 141 mg/dL (74-99); Non-African American GFR(MDRD) >60 (>60 ml/min/1.73 sqM); Potassium 3.7 mmol/L (3.5-5.1); Sodium 143 mmol/L (137-145)
[2017-02-13 12:27] LABS: CH 32.3; CHCM 36.5; HCT 38.9 % (34.0-46.0); HDW 2.76; HGB 13.8 gm/dL (11.4-16.0); MCH 31.6 pg (25.0-35.0); MCHC 35.6 g/dL (31.0-37.0); MCV 88.9 fL (80.0-100.0); RBC 4.38 m/uL (3.80-5.40); RDW 13.4 % (11.5-15.5); WBC 9.2 k/uL (3.8-10.6)
[2017-02-13 15:17] VITALS: BP 99/56; PULSE 45; RESP 20; TEMP 97.9
--- NOTE | 2017-02-13 15:22 | PN ---
Patient is admitted for laparoscopic Garrick fundoplication. Patient is clinically doing well, is being discharged. REVIEW OF SYSTEMS: CARDIOVASCULAR: No chest pain, no orthopnea, no PND, no palpitations. PULMONARY: Denied any shortness of breath. No cough or hemoptysis. GASTROINTESTINAL: No diarrhea, nausea or vomiting. No abdominal pain. Normoactive bowel sounds. NEUROLOGIC: No headaches, no weakness, no numbness. Medications are reviewed. PHYSICAL EXAM: Temperature is 97.5, pulse of 44, sinus bradycardia only whenever patient sleeps, her heart rate does go down. I will obtain EKG and if shows only sinus bradycardia, patient can be discharged today. Patient is not on beta dakota at this time. I want to make sure patient does not have a high degree block, although patient does not have any symptoms at this point of time. GENERAL: The patient is alert and oriented x3, not in any acute distress. Well developed, well nourished. HEENT: Pupils are round and equally reacting to light. EOMI. No scleral icterus. No conjunctival pallor. Normocephalic, atraumatic. No pharyngeal erythema. No thyromegaly. CARDIOVASCULAR: S1 and S2 present. No murmurs, rubs, or gallops. PULMONARY: Chest is clear to auscultation, no wheezing or crackles. ABDOMEN: Soft, nontender, nondistended, normoactive bowel sounds. No palpable organomegaly. MUSCULOSKELETAL: No joint swelling or deformity. EXTREMITIES: No cyanosis, clubbing, or pedal edema. NEUROLOGICAL: Gross neurological examination did not reveal any focal deficits. SKIN: No rashes. FINAL DIAGNOSES: 1. Gastroesophageal reflux disease and esophagitis. 2. Bradycardia. Management as mentioned above. 3. Chronic obstructive pulmonary disease without any acute exacerbation. 4. Type 2 diabetes mellitus. 5. Fibromyalgia. 6. Hyperlipidemia. 7. Fatty liver. 8. Nicotine abuse and marijuana abuse counseling was provided. If patient does not have any high degree block, patient only has sinus bradycardia as patient is asymptomatic, can be discharged from my perspective. Follow with Dr. Leo Hines as an outpatient. Patient needs 1800 calorie ADA diet. Thank for letting me participate in this patient's care. Will be evaluated with an EKG. After that if that is okay, will sign off at that time.
--- NOTE | 2017-02-13 16:11 | P.DS ---
Providers Date of admission: 02/12/17 07:30 Expected date of discharge: 02/13/17 Attending physician: Lucho Desir Consults: 02/12/17 10:00 Consult Physician Routine Consulting Provider: Leo Hines Consult Reason/Comments: Medical management Do you want consulting provider notified?: Yes Primary care physician: Leo Hines [facility] Hospital Course: This is a 51-year-old female who underwent laparoscopic Garrick fundal plication yesterday. Patient did well postoperatively. Please see hospital chart for details.. Procedures: Laparoscopic Garrick fundal location Patient Condition at Discharge: Good Plan - Discharge Summary New Discharge Prescriptions: HYDROcodone/APAP 7.5-325MG [[place] 7.5] 1 each PO Q4H PRN #60 tab PRN Reason: Pain Discharge Medication List ALPRAZolam [Xanax] 0.5 mg PO BID 12/16/16 [History] DULoxetine HCL [Cymbalta] 30 mg PO DAILY 12/16/16 [History] Ibuprofen [Motrin] 800 mg PO TID PRN 12/16/16 [History] metFORMIN HCL [Glucophage] 500 mg PO BID 12/16/16 [History] traMADol HCL [Ultram] 50 mg PO Q6HR PRN 12/16/16 [History] Albuterol Inhaler [Ventolin Hfa Inhaler] 2 puff INHALATION RT-Q6H PRN 01/16/17 [ History] Ascorbic Acid [Vitamin C] 1,000 mg PO DAILY 01/16/17 [History] Aspirin 325 mg PO DAILY 01/16/17 [History] Cholecalciferol [Vitamin D3] 2,000 unit PO DAILY 01/16/17 [History] Cranberry Fruit Concentrate [Cranberry] 450 mg PO DAILY 01/16/17 [History] Fluticasone/Vilanterol [Breo Ellipta 100-25 Mcg Inhaler] 1 dose INHALATION DAILY 01/16/17 [History] Iron Ag/C/B12/Ca/Suc.acid/Stom [Chromagen Lf] 1 tab PO DAILY 01/16/17 [History] Magnesium Oxide [Mag-Ox] 250 mg PO DAILY 01/16/17 [History] Multivitamins, Thera [Multivitamin] 1 tab PO DAILY 01/16/17 [History] [place]-3 Fatty Acids/Fish Oil [Fish Oil 1,000 mg Softgel] 1 cap PO DAILY [History] Acetaminophen Tab [Tylenol Tab] 1,000 mg PO Q6HR PRN 02/06/17 [History] Bronkaid Otc 1 tab PO TID PRN 02/06/17 [History] Fluticasone Nasal [place] [Flonase Nasal [place]] 2 spr EA NOSTRIL DAILY 02/06/17 [ History] L.acidoph,Paracasei, B.lactis [Probiotic] 1 cap PO DAILY 02/12/17 [History] Wheat Dextrin [Benefiber] 1 pack PO DAILY 02/12/17 [History] HYDROcodone/APAP 7.5-325MG [[place] 7.5] 1 each PO Q4H PRN #60 tab 02/13/17 [Rx] Follow up Appointment(s)/Referral(s): Lucho Desir MD [STAFF PHYSICIAN] - 02/24/17 9:20 am Patient Instructions/Handouts: Non-pharmacological Pain Management Therapies for Adults (GEN), Pain Management After Surgery (DC), Adult Laparoscopic Garrick Fundoplication (DC) Activity/Diet/Wound Care/Special Instructions: no heavy lifting, no housework, no driving, not bath tubs or hot tubs. Call Dr Desir if you have any bleeding, increase in pain, vomitting, fever, chills, or if you have any other questions or concerns. Take you medications as prescribed. Leave the surgical glue in place, do not pick at incisions. The glue will fall off on its own. Full liquid diet Garrick diet as directed by the supervisor irrigation.
== END 2017-02-13 17:48 | disposition home or self-care (01) | DRG 328 ==
LOC: 2ORWHC 07:30 → 6PED 09:56
PROVIDERS: ADMIT Surgery; ATTEND Surgery
PROC: 0DV44ZZ Restriction of Esophagogastric Junction, Percutaneous Endoscopic Approach (ICD-10-PCS; principal; 2017-02-12 08:35)
DX: K21.0 Gastro-esophageal reflux disease with esophagitis (principal); K76.0 Fatty (change of) liver, not elsewhere classified; I10 Essential (primary) hypertension; F32.9 Major depressive disorder, single episode, unspecified; E11.9 Type 2 diabetes mellitus without complications; E78.5 Hyperlipidemia, unspecified; F12.90 Cannabis use, unspecified, uncomplicated; F17.200 Nicotine dependence, unspecified, uncomplicated; F41.9 Anxiety disorder, unspecified; J44.9 Chronic obstructive pulmonary disease, unspecified; M79.7 Fibromyalgia; Z79.82 Long term (current) use of aspirin; Z81.8 Family history of other mental and behavioral disorders; Z82.49 Family history of ischemic heart disease and other diseases of the circulatory system; Z79.84 Long term (current) use of oral hypoglycemic drugs; Z79.899 Other long term (current) drug therapy; R00.1 Bradycardia, unspecified
CPT/HCPCS: 74240; 80048; 81025; 85027; 93005; 94640

== ENCOUNTER → 2017-05-18 | Outpatient (CLI) | payer BC ==
--- NOTE | 2017-05-18 09:37 | XR ---
EXAMINATION TYPE: XR chest 2V DATE OF EXAM: 05/18/2017 COMPARISON: 12/16/2016 HISTORY: 51-year-old female with cough TECHNIQUE: Frontal and lateral views FINDINGS: The cardiomediastinal silhouette, aorta, and pulmonary vasculature are within normal limits. Lungs an d pleural spaces are clear. IMPRESSION: No acute cardiopulmonary process.
--- NOTE | 2017-05-18 10:12 | CT ---
EXAMINATION TYPE: CT sinus wo con DATE OF EXAM: 05/18/2017 COMPARISON: NONE HISTORY: Chronic sinusitis per order. Symptoms of headaches with vision changes dizziness falling and numbness of extremities per patient. CT DLP: 654.9 mGycm. Automated Exposure Control for Dose Reduction was Utilized. TECHNIQUE: CT scan of the sinuses is performed without contrast, axial images are obtained, coronal r eformatted images are also reviewed. FINDINGS: The paranasal sinuses including the frontal, ethmoid, sphenoid, and maxillary sinuses bila terally are well-aerated without suspicious opacification. Mild mucosal thickening involving anterior ethmoid sinuses is present bilaterally. Suspect small mucous retention cyst or polyp involving poste rior left ethmoid sinus on axial image 27 measuring 9 mm. The ostiomeatal complex is patent bilateral ly on the coronal images seen best on image 16. Remote nasal bridge fracture is present. Anterior sep samia is deviated to right of midline likely product of remote trauma. Visualized portion of mastoid air cells show no abnormal opacification. The globes are intact bilate rally. IMPRESSION: Mild chronic paranasal sinus disease. No suspicious acute paranasal sinusitis.
== END | disposition home or self-care (01) ==
LOC: RADCTMAIN 08:11
PROVIDERS: ATTEND Otolaryngology
DX: J32.4 Chronic pansinusitis (principal); R05 Cough
CPT/HCPCS: 70486; 71020

== ENCOUNTER 2017-06-25 07:33 | Day surgery (SDC) | payer BC ==
[2017-06-18 12:36] VITALS: BMI 27.9
[~2017-06-25 07:33] MED LIST changes: +DEXAMETHASONE SOD PHOSPHATE 4 MG/ML 1 ML VIAL IV ONE; +FAMOTIDINE 20 MG/2 ML VIAL IV ONE; -HEPARIN SODIUM,PORCINE 5,000 UNIT/ML 1 ML VIAL SQ ONE; +HYDROmorphone 1 MG/ML 1 ML SYRINGE IVP PRN; +LACTATED RINGERS 1,000 ML IV SCH; -MIDAZOLAM 2 MG/2 ML VIAL IV PRN; -SCOPOLAMINE 1.5MG/72HR PATCH TRANSDERM ONE; +ceFAZolin 1,000 MG in DEXTROSE/WATER 1 50ML.BAG IV ONE; -ceFAZolin 2 GM in SODIUM CHLORIDE 0.9% 100 ML IVPB ONE
[2017-06-25] MEDS: OXYMETAZOLINE 0.05% NASL SPRAY 1 SPRAY BOTTLE NASAL ONE ×5 (08:07→08:40)
[2017-06-25 08:16] LABS: Glucose,Whole Blood 104 mg/dL (75-99)
[2017-06-25] MEDS ORDERED: LIDOCAINE 1% 20 ML VIAL (10MG/ML) FOR IV START INTRADERMA ONE (08:30)
[2017-06-25] MEDS ORDERED: fentaNYL (PF) 50 MCG/ML 2 ML AMP ONE (09:02)
[2017-06-25] MEDS ORDERED: LIDOCAINE 1% INJ 10MG/ML (20 ML MDV) ONE (09:02)
[2017-06-25] MEDS ORDERED: HYDROmorphone (PF) 1 MG/ML ONE (09:02)
[2017-06-25] MEDS ORDERED: MIDAZOLAM 2 MG/2 ML VIAL ONE (09:02)
[2017-06-25] MEDS ORDERED: GLYCOPYRROLATE 0.2 MG/ML 2 ML VIAL ONE (09:02)
[2017-06-25] MEDS ORDERED: PROPOFOL 10 MG/ML 20 ML VIAL IV ONE (09:02)
[2017-06-25] MEDS ORDERED: SUCCINYLCHOLINE CHLORIDE 100 MG/5 ML SYR IV ONE (09:02)
[2017-06-25] MEDS ORDERED: BACITRACIN 500 UNIT/GM OINT 28.4 GM TUBE TOPICAL ONE (09:37)
[2017-06-25] MEDS ORDERED: FLUORESCEIN STRIPS 1 MG STRIP MISCELLANE ONE (09:37)
[2017-06-25] MEDS ORDERED: EPINEPHrine 1 MG/ML (MDV) 30 ML VIAL TOPICAL ONE (09:38)
[2017-06-25] MEDS ORDERED: LIDOCAINE 2%-EPI 1:100,000 20 ML VIAL SUBMUCOSAL ONE ×2 (09:38)
[2017-06-25] MEDS ORDERED: LACTATED RINGERS 1,000 ML IV ONE (09:46)
[2017-06-25 10:48] LABS: Glucose,Whole Blood 190 mg/dL (75-99)
[2017-06-25 10:52] VITALS: TEMP 97.8
--- NOTE | 2017-06-25 11:10 | P.OP ---
Date of Procedure: 06/25/17 Preoperative Diagnosis: Deviated nasal septum, right Hypertrophy of inferior nasal turbinates Chronic Sinusitis Postoperative Diagnosis: Same Procedure(s) Performed: Septoplasty Bilateral outfracture compression and submucosal resection of the inferior turbinates Limited functional endoscopic sinus surgery of the maxillary and total ethmoids bilaterally Implants: Anesthesia: POLYA Surgeon: Alexy Tidwell Estimated Blood Loss (ml): 20 Pathology: other (Sinonasal) Condition: stable Disposition: PACU Indications for Procedure: This patient presented to the office with long-standing sinusitis. She complains of constant yellow postnasal drainage persistent nasal obstruction and chronic mouth breathing. The mouth breathing is made her a snorer and she has a disrupted sleep pattern. She has total anosmia gets facial pain and pressure over the maxillary and ethmoid sinuses. CAT scan evaluation demonstrated chronic sinusitis of the maxillary and ethmoid sinuses along with a severe right septal deviation and large and obstructive inferior turbinates. The patient has been on antibiotics Cortizone nasal sprays etc. and has failed medical therapy. After long discussion the patient would like to proceed forward with surgical correction. All risks, benefits, and alternative therapies were discussed in detail. Consent was obtained and all questions were answered. Operative Findings: Patient had a severe right septal deviation with over 90% occlusion on the right with large massive inferior turbinates bilaterally that were obstructive. The patient had sinus disease of the maxillary and ethmoid sinuses bilaterally with diseased tissue being removed. Description of Procedure: This patient was taken to the operative room and placed in the supine position. A general inhalation anesthetic was administered to the patient by the department of anesthesia with a functioning IV line in place. The patient was monitored throughout the entire case by the department of anesthesia. The eyes were taped shut for protection. The patient was placed in a slight reverse Trendelenburg position. The patient had previously utilize Afrin nasal spray preoperatively. The nose was evaluated and the septum lateral nasal wall and inferior turbinates were injected with lidocaine 1% with epinephrine 1 100,000 bilaterally. Approximately 10 minutes were allowed wait for full vasoconstrictive effects to take place. At this point a caudal incision was made over the caudal portion of the left septum down to the mucoperichondrium. A mucoperichondrial flap was elevated on the left side and dissection was carried with use of tunnels posteriorly. We then made a crossover incision through the cartilage to the contralateral side and for the mucoperichondrial flap development was performed to the extent of visualization on the contralateral side. After the cartilage was freed with use of several crosshatching incisions and removal of some redundant strips of septal cartilage, the septum was straightened and placed back in the midline. The septum was sutured fixated to the ovarian groove. Excellent straightening occurred and the septum was visibly straight. Incision was closed with a 40 rapid Vicryl. We utilized a running nonlocking fashion for closure of the incision. A quilting stitch was used to reapproximate the septal flaps with use of a 40 rapid Vicryl. We then entered the nose with a 0 and 30 Holt barbara endoscope. Previous to this we did inject the lateral nasal wall and middle turbinate and uncinate process with lidocaine 1% with epinephrine 1 100,000. Approximately 10 minutes were allowed wait for full vasoconstrictive effects to take place. With use of a microdebrider and a pediatric backbiter, we took down the uncinate process bilaterally. We then opened the maxillary sinuses bilaterally. We utilized a microdebrider for this and entered the maxillary sinuses and removed diseased tissue. This was done bilaterally. After the maxillary sinuses were opened and the diseased tissue was removed we entered the ethmoid bulla and with use of a microdebrider and up-biting Angie, we followed the fovea frontalis through the basal lamella and into the posterior ethmoid air cells and did a total ethmoidectomy. We removed the anterior ethmoid air cells with use of a microdebrider and up-biting boss. After all the anterior ethmoid air cells were removed we did the same in the posterior ethmoid. A total ethmoidectomy was completed in that fashion with removal of all the anterior and posterior ethmoid air cells and diseased tissue. Xerogel was inserted and minimal bleeding was encountered. We reinspected the skull base there is no signs of any orbital penetration or signs of any intracranial penetration. The sugical site was reinspected after the xerogel was placed and no bleeding was seen. Intranasal splints were inserted and fixated at the end of the case. We utilized [place] nasal splints. There will be removed and the patient returns to the office. Attention was then paid to the inferior turbinates. The bilateral inferior turbinates were hypertrophic and obstructive. We entered the anterior portion of the inferior turbinates with use of a microdebrider. We remove bone and submucosal elements with use of a microdebrider bilaterally. The inferior turbinates underwent a submucosal resection with removal of submucosal tissue and bone. We obtained a much better and normal in size for breathing. The inferior turbinates were then outfractured and compressed with a Boyes nasal elevator. Excellent airway was obtained and was symmetric bilaterally. No bleeding was encountered.
[2017-06-25 11:46] VITALS: RESP 16
[2017-06-25 13:12] VITALS: BP 108/63; PULSE 52
== END 2017-06-25 13:28 | disposition home or self-care (01) ==
LOC: OR 07:33
PROVIDERS: ATTEND Otolaryngology
DX: J34.3 Hypertrophy of nasal turbinates (principal); J32.2 Chronic ethmoidal sinusitis; J32.0 Chronic maxillary sinusitis; J34.2 Deviated nasal septum; E66.9 Obesity, unspecified; Z72.0 Tobacco use; J45.909 Unspecified asthma, uncomplicated; R43.0 Anosmia; Z68.28 Body mass index [BMI] 28.0-28.9, adult; I10 Essential (primary) hypertension; E78.5 Hyperlipidemia, unspecified; J44.9 Chronic obstructive pulmonary disease, unspecified; E11.9 Type 2 diabetes mellitus without complications; M79.7 Fibromyalgia; F41.9 Anxiety disorder, unspecified; F32.9 Major depressive disorder, single episode, unspecified; K21.9 Gastro-esophageal reflux disease without esophagitis; K76.0 Fatty (change of) liver, not elsewhere classified; Z79.84 Long term (current) use of oral hypoglycemic drugs; Z79.1 Long term (current) use of non-steroidal anti-inflammatories (NSAID); Z79.899 Other long term (current) drug therapy
CPT/HCPCS: 81025; 88305; 88300; 30520; 30140; 31255; 31267; J0171; J2250; J1100; J2405; J2001; J3010; J1170; J0690; J0330; J2704

== ENCOUNTER 2018-03-23 11:22 | Emergency (ER) | payer BC ==
--- NOTE | 2018-03-23 11:39 | ED ---
General Adult HPI - General Chief complaint: Chest Pain Stated complaint: ABDOMINAL PAIN Time Seen by Provider: 03/23/18 11:32 Source: patient, RN notes reviewed, old records reviewed Mode of arrival: wheelchair Limitations: no limitations - History of Present Illness Initial comments: This is a 52-year-old female to the ER for evaluation. Patient presents for evaluation of chest pain chest pain anterior chest pain abdominal pain. Patient has history and possible and prior ER visits for chest pain. Patient states she isn't never had anything follow with her heart, she has had prior stress test with no result and O- finding. Patient has no fevers no cough or congestion or nausea vomiting or diarrhea - Related Data Home Medications Medication Instructions Recorded Confirmed ALPRAZolam [Xanax] 0.5 mg PO BID PRN 12/16/16 03/23/18 metFORMIN HCL [Glucophage] 500 mg PO BID 12/16/16 03/23/18 traMADol HCL [Ultram] 50 mg PO Q6HR PRN 12/16/16 03/23/18 Amoxicillin 875 mg PO BID 03/23/18 03/23/18 Fexofenadine HCl [Carlotta Allergy] 180 mg PO HS 03/23/18 03/23/18 Montelukast [Singulair] 10 mg PO HS 03/23/18 03/23/18 diphenhydrAMINE HCL [Benadryl] 25 mg PO Q6H PRN 03/23/18 03/23/18 Allergies Allergy/AdvReac Type Severity Reaction Status Date / Time pregabalin [From Lyrica] Allergy Mild Rash/Hives Verified 03/23/18 12:04 Review of Systems ROS Statement: Those systems with pertinent positive or pertinent negative responses have been documented in the HPI. ROS Other: All systems not noted in ROS Statement are negative. Past Medical History Past Medical History: COPD, Diabetes Mellitus, Fibromyalgia, GERD/Reflux, Hyperlipidemia, Hypertension, Liver Disease, Skin Disorder Additional Past Medical History / Comment(s): fatty liver, bronchitis, occasional bilateral tinnitis, rosecea., RINGING IN EARS, STATES ALLERGIES AND SEEING ENT FOR TESTING. History of Any Multi-Drug Resistant Organisms: MRSA Date of last positivie culture/infection: 08/24/15 MDRO Source:: abdomen Past Surgical History: Cholecystectomy Additional Past Surgical History / Comment(s): LORRAINE FUNDOPLICATION 02/22/17, COLONOSCOPY AND EGD. I & D OF LABIAL ABSCESS/, GROIN ABSCESS FROM INGROWN HAIR. , RIGHT OVARIAN CYST AND ANNE (12/18/16) Past Anesthesia/Blood Transfusion Reactions: Motion Sickness, Postoperative Nausea & Vomiting (PONV) Additional Past Anesthesia/Blood Transfusion Reaction / Comment(s): no sx hx Past Psychological History: Anxiety, Depression Smoking Status: Current every day smoker Past Alcohol Use History: None Reported Past Drug Use History: Marijuana - Past Family History Father History Unknown: Yes Additional Family Medical History / Comment(s): pacemaker,anxiety,depression Mother History Unknown: Yes Family Medical History: Diabetes Mellitus, Hypertension Additional Family Medical History / Comment(s): depression/anxiety General Exam Limitations: no limitations General appearance: alert, in no apparent distress Head exam: Present: atraumatic, normocephalic, normal inspection Eye exam: Present: normal appearance, PERRL, EOMI. Absent: scleral icterus, conjunctival injection, periorbital swelling ENT exam: Present: normal exam, mucous membranes moist Neck exam: Present: normal inspection. Absent: tenderness, meningismus, lymphadenopathy Respiratory exam: Present: normal lung sounds bilaterally. Absent: respiratory distress, wheezes, rales, rhonchi, stridor Cardiovascular Exam: Present: regular rate, normal rhythm, normal heart sounds. Absent: systolic murmur, diastolic murmur, rubs, gallop, clicks GI/Abdominal exam: Present: soft, normal bowel sounds. Absent: distended, tenderness, guarding, rebound, rigid Extremities exam: Present: normal inspection, full ROM, normal capillary refill. Absent: tenderness, pedal edema, joint swelling, calf tenderness Back exam: Present: normal inspection Neurological exam: Present: alert, oriented X3, CN II-XII intact Psychiatric exam: Present: normal affect, normal mood Skin exam: Present: warm, dry, intact, normal color. Absent: rash Course Vital Signs 03/23/18 03/23/18 03/23/18 11:26 12:24 13:38 Temperature 98.6 F Pulse Rate 52 L 50 L 43 L Respiratory 18 17 Rate Blood Pressure 159/64 124/60 132/61 O2 Sat by Pulse 97 97 98 Oximetry EKG Findings - EKG Comments: EKG Findings:: EKG shows sinus bradycardia rate of 43, [place] 134, QRS 94, QTc 432 Medical Decision Making - Medical Decision Making 52 female the ER with nonspecific chest and abdominal pain. CT chest and pelvis is negative. Troponin negative labwork is normal. EKG is negative and patient can be discharged home - Lab Data Result diagrams: 03/23/18 11:40 03/23/18 11:40 Lab Results 03/23/18 03/23/18 03/23/18 Range/Units 11:40 11:40 11:40 WBC 7.6 (3.8-10.6) k/uL RBC 4.68 (3.80-5.40) m/uL Hgb 14.9 (11.4-16.0) gm/dL Hct 41.0 (34.0-46.0) % MCV 87.7 (80.0-100.0) fL MCH 31.9 (25.0-35.0) pg MCHC 36.4 (31.0-37.0) g/dL RDW 13.0 (11.5-15.5) % Plt Count 272 (150-450) k/uL Neutrophils % 59 % Lymphocytes % 35 % Monocytes % 3 % Eosinophils % 2 % Basophils % 0 % Neutrophils # 4.5 (1.3-7.7) k/uL Lymphocytes # 2.7 (1.0-4.8) k/uL Monocytes # 0.2 (0-1.0) k/uL Eosinophils # 0.1 (0-0.7) k/uL Basophils # 0.0 (0-0.2) k/uL PT (9.0-12.0) sec INR (<1.2) APTT (22.0-30.0) sec D-Dimer (<0.60) mg/L FEU Sodium 147 H (137-145) mmol/L Potassium 3.5 (3.5-5.1) mmol/L Chloride 105 (98-107) mmol/L Carbon Dioxide 27 (22-30) mmol/L Anion Gap 15 mmol/L BUN 11 (7-17) mg/dL Creatinine 0.41 L (0.52-1.04) mg/dL Est GFR (CKD-EPI)AfAm >90 (>60 ml/min/1.73 sqM) Est GFR (CKD-EPI)NonAf >90 (>60 ml/min/1.73 sqM) Glucose 96 (74-99) mg/dL Calcium 9.2 (8.4-10.2) mg/dL Magnesium 1.8 (1.6-2.3) mg/dL Total Bilirubin 0.8 (0.2-1.3) mg/dL AST 18 (14-36) U/L ALT 26 (9-52) U/L Alkaline Phosphatase 59 (38-126) U/L Total Creatine Kinase 26 L (30-135) U/L CK-MB (CK-2) <0.2 (0.0-2.4) ng/mL CK-MB (CK-2) Rel Index Troponin I <0.012 (0.000-0.034) ng/mL Total Protein 6.9 (6.3-8.2) g/dL Albumin 4.5 (3.5-5.0) g/dL Lipase 74 (23-300) U/L / Range/Units 11:40 WBC (3.8-10.6) k/uL RBC (3.80-5.40) m/uL Hgb (11.4-16.0) gm/dL Hct (34.0-46.0) % MCV (80.0-100.0) fL MCH (25.0-35.0) pg MCHC (31.0-37.0) g/dL RDW (11.5-15.5) % Plt Count (150-450) k/uL Neutrophils % % Lymphocytes % % Monocytes % % Eosinophils % % Basophils % % Neutrophils # (1.3-7.7) k/uL Lymphocytes # (1.0-4.8) k/uL Monocytes # (0-1.0) k/uL Eosinophils # (0-0.7) k/uL Basophils # (0-0.2) k/uL PT 10.0 (9.0-12.0) sec INR 1.0 (<1.2) APTT 22.9 (22.0-30.0) sec D-Dimer 0.57 (<0.60) mg/L FEU Sodium (137-145) mmol/L Potassium (3.5-5.1) mmol/L Chloride (98-107) mmol/L Carbon Dioxide (22-30) mmol/L Anion Gap mmol/L BUN (7-17) mg/dL Creatinine (0.52-1.04) mg/dL Est GFR (CKD-EPI)AfAm (>60 ml/min/1.73 sqM) Est GFR (CKD-EPI)NonAf (>60 ml/min/1.73 sqM) Glucose (74-99) mg/dL Calcium (8.4-10.2) mg/dL Magnesium (1.6-2.3) mg/dL Total Bilirubin (0.2-1.3) mg/dL AST (14-36) U/L ALT (9-52) U/L Alkaline Phosphatase (38-126) U/L Total Creatine Kinase (30-135) U/L CK-MB (CK-2) (0.0-2.4) ng/mL CK-MB (CK-2) Rel Index Troponin I (0.000-0.034) ng/mL Total Protein (6.3-8.2) g/dL Albumin (3.5-5.0) g/dL Lipase (23-300) U/L - Radiology Data Radiology results: report reviewed (CT chest abdomen pelvis negative for acute disease), image reviewed Disposition Clinical Impression: Atypical chest pain Disposition: HOME SELF-CARE Condition: Good Instructions: Chest Pain (ED) Is patient prescribed a controlled substance at d/c from ED?: No Referrals: Leo Hines MD [Primary Care Provider] - 1-2 days
[2018-03-23 11:55] LABS: Basophils % (A) 0 %; Eosinophils # (A) 0.1 k/uL (0-0.7); Eosinophils % (A) 2 %; HGB 14.9 gm/dL (11.4-16.0); Lymphocytes # (A) 2.7 k/uL (1.0-4.8); Lymphocytes % (A) 35 %; MCH 31.9 pg (25.0-35.0); MCHC 36.4 g/dL (31.0-37.0); MCV 87.7 fL (80.0-100.0); Monocytes # (A) 0.2 k/uL (0-1.0); Monocytes % (A) 3 %; Neutrophils # (A) 4.5 k/uL (1.3-7.7); Neutrophils % (A) 59 %; Platelet Count 272 k/uL (150-450); RBC 4.68 m/uL (3.80-5.40); WBC 7.6 k/uL (3.8-10.6)
[2018-03-23 12:06] LABS: D-Dimer 0.57 mg/L FEU (<0.60); Partial Thromboplastin Time 22.9 sec (22.0-30.0)
[2018-03-23] MEDS ORDERED: RX INFO: IV CONTRAST WAS GIVEN 1 EACH MISC MISCELLANE PRN (12:14)
[2018-03-23 12:16] LABS: ALT 26 U/L (9-52); AST 18 U/L (14-36); Albumin 4.5 g/dL (3.5-5.0); Alkaline Phosphatase 59 U/L (38-126); Anion Gap 15 mmol/L; Blood Urea Nitrogen 11 mg/dL (7-17); Calcium 9.2 mg/dL (8.4-10.2); Carbon Dioxide 27 mmol/L (22-30); Chloride 105 mmol/L (98-107); Creatine Kinase 26 U/L (30-135); Glucose 96 mg/dL (74-99); Lipase 74 U/L (23-300); Magnesium 1.8 mg/dL (1.6-2.3); Potassium 3.5 mmol/L (3.5-5.1); Sodium 147 mmol/L (137-145); Total Bilirubin 0.8 mg/dL (0.2-1.3); Total Protein 6.9 g/dL (6.3-8.2)
[2018-03-23] MEDS ORDERED: MORPHINE SULFATE 4 MG/ML SYRINGE IVP STA (12:16)
--- NOTE | 2018-03-23 12:24 | XR ---
EXAMINATION TYPE: XR chest 2V DATE OF EXAM: 03/23/2018 COMPARISON: Prior chest x-ray 05/18/2017 HISTORY: Chest pain TECHNIQUE: Frontal and lateral views of the chest are obtained. FINDINGS: The patient is rotated. There are overlying cardiac leads. There is no focal air space opa city, pleural effusion, or pneumothorax seen. The cardiac silhouette size is within normal limits. The osseous structures are intact. IMPRESSION: No acute cardiopulmonary process.
[2018-03-23 12:27] LABS: Creatine Kinase MB <0.2 ng/mL (0.0-2.4); Troponin I <0.012 ng/mL (0.000-0.034)
--- NOTE | 2018-03-23 13:54 | CT ---
EXAMINATION TYPE: CT abdomen pelvis w con DATE OF EXAM: 03/23/2018 COMPARISON: 12/16/2016 HISTORY: 52-year-old female Chest pain with abd/pelvic cramping TECHNIQUE: Contiguous axial scanning of the abdomen and pelvis following administration of 100 ml Omn ipaque 300 IV contrast. Delayed images through the kidneys and coronal/sagittal reconstructions perf ormed. CT DLP: 1501 mGycm Automated exposure control for dose reduction was used. FINDINGS: Heart normal size without pericardial effusion. Chest reported separately. Post surgical changes at the GE junction of Garrick fundoplication. Liver enlarged measuring 21.9 cm craniocaudal with low attenuation on portal venous phase. Portal heather ous system is patent. Cholecystectomy clips. No biliary ductal dilatation. Small diverticulum of the second portion of the duodenum projecting into the pancreatic head region. Stable small 8 mm nodule of the left adrenal gland statistically representing a benign adrenal adenom a especially given stability from 12/16/2016. Right adrenal gland, left kidney, spleen with inferior sp lenule, and pancreas show no gross abnormal body. Tiny subcentimeter hypodensity anterior lower pole right kidney too small for accurate CT characteriz ation, likely a tiny cyst. No dilated small bowel, free fluid, or free air. Normal appendix. There is some mild wall thickening of a short segment of transverse colon, refer to axial images 39 t hrough 41. No mesenteric or retroperitoneal lymphadenopathy. Bladder urine distended. Uterus and left ovary are visualized. Right ovary not clearly seen. The prev ious right adnexal cystic mass has resolved in the interval. No abnormal fluid collection in the pelv is or pelvic lymphadenopathy. Bones: Mild degenerative changes at the hips. Additional degenerative changes lower lumbar spine. No osseous destructive process. IMPRESSION: 1. MILD CIRCUMFERENTIAL WALL THICKENING OF A SHORT SEGMENT OF PROXIMAL TRANSVERSE COLON COULD REPRESE NT A LOCALIZED COLITIS. DIRECT VISUALIZATION RECOMMENDED TO EXCLUDE NEOPLASM IF THE PATIENT HAS NOT S TARTED ROUTINE SCREENING COLONOSCOPY. 2. HEPATOMEGALY WITH HEPATIC STEATOSIS. 3. STABLE 8 MM LEFT ADRENAL ADENOMA. 4. RESOLUTION OF THE PREVIOUS LARGE RIGHT ADNEXAL CYSTIC MASS.
--- NOTE | 2018-03-23 13:59 | CT ---
EXAMINATION TYPE: CT angio chest DATE OF EXAM: 03/23/2018 COMPARISON: 12/16/2016 HISTORY: 52-year-old female Chest pain with abd/pelvic cramping TECHNIQUE: Contiguous axial scanning of the chest performed with IV Contrast, patient injected with 1 00 mL of Isovue 370. Coronal/sagittal MIP reconstructions performed. CT DLP: 294.8 mGycm Automated exposure control for dose reduction was used. FINDINGS: Heart is normal size without pericardial effusion. Ectatic ascending urinary 3.5 cm. There is conventional arterial vessel branching anatomy. No thoracic lymphadenopathy. Borderline caliber to the main right and left pulmonary arteries and 2.5 cm each suggesting underlyin g pulmonary hypertension. Satisfactory opacification of the pulmonary arterial system without evidenc e for pulmonary embolus. Strandy dependent atelectasis is noted. Mild interstitial prominence as a chronic appearance. Mild pa raseptal and centrilobular emphysema. No consolidation or pleural effusion. Abdomen reported separately. Reflux of contrast into the IVC and hepatic veins. No osseous destructive process. IMPRESSION: 1. POSSIBLE PULMONARY ARTERIAL HYPERTENSION. ADDITIONALLY, GIVEN REFLUX OF CONTRAST INTO THE IVC AND HEPATIC VEINS, CORRELATE FOR ELEVATED RIGHT HEART PRESSURES/EARLY CARDIAC DECOMPENSATION. 2. NO EVIDENCE FOR PULMONARY EMBOLUS. 3. COPD WITH MILD EMPHYSEMATOUS CHANGE.
[2018-03-23 15:28] VITALS: BP 143/62; PULSE 46; RESP 16; TEMP 99
== END 2018-03-23 15:24 | disposition home or self-care (01) ==
LOC: EC 11:22
DX: R07.89 Other chest pain (principal); R10.9 Unspecified abdominal pain; E11.9 Type 2 diabetes mellitus without complications; J44.9 Chronic obstructive pulmonary disease, unspecified; F17.200 Nicotine dependence, unspecified, uncomplicated; Z79.84 Long term (current) use of oral hypoglycemic drugs; Z79.899 Other long term (current) drug therapy; Z88.8 Allergy status to other drugs, medicaments and biological substances; Z91.09 Other allergy status, other than to drugs and biological substances; Z86.14 Personal history of Methicillin resistant Staphylococcus aureus infection; Z90.49 Acquired absence of other specified parts of digestive tract; Z98.890 Other specified postprocedural states; Z82.49 Family history of ischemic heart disease and other diseases of the circulatory system
CPT/HCPCS: 36415; 93005; 85379; 80053; 82550; 82553; 83690; 83735; 84484; 85025; 85610; 85730; 71046; 71275; 74177; 99285; 96374; J2270; Q9967

== ENCOUNTER 2018-04-21 06:52 | Day surgery (SDC) | payer BC ==
[2018-04-19 15:53] VITALS: BMI 28.3
[~2018-04-21 06:52] MED LIST changes: -DEXAMETHASONE SOD PHOSPHATE 10 MG/ML 1 ML VIAL IV ONE; -DEXAMETHASONE SOD PHOSPHATE 4 MG/ML 1 ML VIAL IV ONE; -FAMOTIDINE 20 MG/2 ML VIAL IV ONE; -HYDROmorphone 1 MG/ML 1 ML SYRINGE IVP PRN; -LACTATED RINGERS 1,000 ML IV SCH; +LIDOCAINE 1% 20 ML VIAL (10MG/ML) FOR IV START INTRADERMA PRN; +MIDAZOLAM 2 MG/2 ML VIAL IV PRN; -ONDANSETRON 4 MG/2 ML VIAL IVP ONE; -ceFAZolin 1,000 MG in DEXTROSE/WATER 1 50ML.BAG IV ONE
[2018-04-21 07:25] VITALS: RESP 18; TEMP 98.1
[2018-04-21] MEDS: LACTATED RINGERS 1,000 ML IV SCH ×2 (07:34→07:41)
[2018-04-21 07:36] LABS: Glucose,Whole Blood 134 mg/dL (75-99)
[2018-04-21] MEDS ORDERED: LIDOCAINE 1% INJ 10MG/ML (20 ML MDV) ONE (07:43)
[2018-04-21] MEDS ORDERED: PROPOFOL 10 MG/ML 20 ML VIAL IV ONE (07:43)
--- NOTE | 2018-04-21 07:51 | P.GSHP ---
History of Present Illness H&P Date: 04/21/18 Chief Complaint: GERD, colitis Scissors a 50-year-old female who has complaints of GERD. She also had some complaints of diarrhea. She has complaints of abdominal pain as well. She presents today for EGD and colonoscopy. Past Medical History Past Medical History: COPD, Diabetes Mellitus, Fibromyalgia, Hyperlipidemia, Liver Disease, Skin Disorder Additional Past Medical History / Comment(s): Abd pain. fatty liver, bronchitis , occasional bilateral tinnitis, rosecea, History of Any Multi-Drug Resistant Organisms: MRSA Date of last positivie culture/infection: 08/24/15 MDRO Source:: lower abdomen/pelvic area Past Surgical History: Cholecystectomy Additional Past Surgical History / Comment(s): LORRAINE FUNDOPLICATION 02/22/17, COLONOSCOPY AND EGD, I & D OF LABIAL ABSCESS/, GROIN ABSCESS FROM INGROWN HAIR, RIGHT OVARIAN CYST Past Anesthesia/Blood Transfusion Reactions: Motion Sickness, Postoperative Nausea & Vomiting (PONV) Additional Past Anesthesia/Blood Transfusion Reaction / Comment(s): no sx hx Smoking Status: Current every day smoker - Past Family History Father History Unknown: Yes Additional Family Medical History / Comment(s): pacemaker,anxiety,depression Mother History Unknown: Yes Family Medical History: Diabetes Mellitus, Hypertension Additional Family Medical History / Comment(s): depression/anxiety Medications and Allergies Home Medications Medication Instructions Recorded Confirmed Type ALPRAZolam [Xanax] 0.5 mg PO BID PRN 12/16/16 04/21/18 History metFORMIN HCL [Glucophage] 500 mg PO BID 12/16/16 04/21/18 History traMADol HCL [Ultram] 50 mg PO Q6HR PRN 12/16/16 04/21/18 History Fexofenadine HCl [Carlotta Allergy] 180 mg PO HS 03/23/18 04/21/18 History Montelukast [Singulair] 10 mg PO HS 03/23/18 04/21/18 History diphenhydrAMINE HCL [Benadryl] 25 mg PO Q6H PRN 03/23/18 04/21/18 History Allergies Allergy/AdvReac Type Severity Reaction Status Date / Time pregabalin [From Lyrica] Allergy Mild Rash/Hives Verified 04/21/18 07:24 Surgical - Exam Vital Signs Temp Pulse Resp BP Pulse Ox 98.1 F 56 L 18 106/62 99 04/21/18 07:24 04/21/18 07:24 04/21/18 07:24 04/21/18 07:24 04/21/18 07:24 - General well developed, no distress - Eyes PERRL - ENT normal pinna - Neck no masses - Respiratory normal expansion - Cardiovascular Rhythm: regular - Abdomen Abdomen: soft, non tender Results - Labs Abnormal Lab Results - Last 24 Hours (Table) 04/21/18 Range/Units 07:31 POC Glucose (mg/dL) 134 H (75-99) mg/dL Assessment and Plan Assessment: GERD, colitis. We'll perform EGD and colonoscopy.
[2018-04-21] MEDS ORDERED: IV FLUID CONTINUATION 500 ML IV ONE (08:16)
[2018-04-21 09:13] VITALS: BP 117/60; PULSE 70
--- NOTE | 2018-04-21 10:12 | P.OP ---
Date of Procedure: 04/21/18 Preoperative Diagnosis: GERD Colitis Postoperative Diagnosis: Antral gastritis Mild esophagitis Colonic thickening at 35 cm suggestive of colitis. Procedure(s) Performed: EGD Colonoscopy Anesthesia: MAC Surgeon: Lucho Desir Pathology: other (Antrum, esophagus, colon) Disposition: PACU Description of Procedure: The patient's placed on the endoscopy table in the lateral position. She received IV sedation. The gastroscope placed oropharynx passed in the esophagus and into the stomach. The scope was then placed through the pylorus. The first and second portion of the duodenum appeared normal. Scope was then brought back the antrum this appeared mildly inflamed. A biopsy was performed. The scope was unretroflexed and remainder stomach appeared normal. The patient had previous fundal plication wrap. There is no evidence of significant hiatal hernia. The GE junction was at 40 cm. The distal esophagus appeared mildly inflamed a biopsies performed. The proximal esophagus appeared normal. The scope was withdrawn for patient. Next digital rectal exam was performed which revealed no abnormalities. Flexible colonoscope was then placed patient anus and passed throughout the colon. At 35 cm steven the colonic wall was edematous and thickened the scope could not be passed through this area. A biopsy mucosa was performed. Scope was withdrawn remainder the descending and sigmoid colon appeared normal. Scope was then brought back the rectum this appeared normal. Scope was withdrawn for patient.
--- NOTE | 2018-04-23 15:21 | CDI ---
Date: 04/23/18 CDS/Steam Turbine Operator Name: Anu Cowart Phone: If any questions, call Marly Baig Cupola Worker at [phone] Patient Name: Deena Randle Admit Date: 04/21/18 Discharge Date: 04/21/18 ATTENTION: The [facility] Coding Staff appreciate your assistance in clarifying documentation. Please respond to the clarification below the line at the bottom and electronically sign. The [facility] Coding staff will review the response and follow-up if needed. Please note: Queries are made part of the Legal Health Record. If you have any questions, please contact the Cupola Worker. Dear Dr. Desir, Please provide clarification as to the location of the biopsy at 35 cm. Please clarify the section of colon (Sigmoid, Descending, transverse, Ascending). Thank you for your kind consideration. The biopsy at 35 cm is the sigmoid colon MTDD
== END 2018-04-21 09:00 | disposition home or self-care (01) ==
LOC: ORWHC2ENDO 06:52
PROVIDERS: ATTEND Surgery
DX: K29.50 Unspecified chronic gastritis without bleeding (principal); K21.9 Gastro-esophageal reflux disease without esophagitis; J44.9 Chronic obstructive pulmonary disease, unspecified; E11.9 Type 2 diabetes mellitus without complications; Z79.84 Long term (current) use of oral hypoglycemic drugs; M79.7 Fibromyalgia; E78.5 Hyperlipidemia, unspecified; K76.0 Fatty (change of) liver, not elsewhere classified; F17.210 Nicotine dependence, cigarettes, uncomplicated; F41.9 Anxiety disorder, unspecified; Z86.14 Personal history of Methicillin resistant Staphylococcus aureus infection; Z79.899 Other long term (current) drug therapy; Z88.8 Allergy status to other drugs, medicaments and biological substances
CPT/HCPCS: 88305; 45380; 43239; J2001; J2704

== ENCOUNTER → 2019-02-15 | Outpatient (CLI) | payer BC ==
--- NOTE | 2019-02-15 14:32 | XR ---
EXAMINATION TYPE: XR chest 2V DATE OF EXAM: 02/15/2019 COMPARISON: 03/23/2018 HISTORY: Chest pain TECHNIQUE: Frontal and lateral views of the chest are obtained. FINDINGS: There is no focal air space opacity. No evidence for pneumothorax. No pleural effusion. The cardiac silhouette size is within normal limits. The osseous structures are grossly intact. IMPRESSION: 1. No acute cardiopulmonary process.
== END | disposition home or self-care (01) ==
LOC: LABWHC1 12:20
PROVIDERS: ATTEND Otolaryngology
DX: R05 Cough (principal); J30.89 Other allergic rhinitis
CPT/HCPCS: 36415; 71046

== ENCOUNTER → 2019-03-29 | Outpatient (CLI) | payer BC ==
--- NOTE | 2019-03-29 13:58 | CT ---
EXAMINATION TYPE: CT abdomen pelvis wo con DATE OF EXAM: 03/29/2019 COMPARISON: 03/23/2018 HISTORY: Bilateral lower flank and groin pain CT DLP: 639.6 mGycm Automated exposure control for dose reduction was used. TECHNIQUE: Helical acquisition of images was performed from the lung bases through the pelvis. FINDINGS: LUNG BASES: No significant abnormality is appreciated. LIVER/GB: Liver again appears prominent in size measuring 21 cm there is changes of previous cholecys tectomy PANCREAS: No significant abnormality is seen. SPLEEN: No significant abnormality is seen. ADRENALS: Stable 8 mm left adrenal nodule. KIDNEYS: No significant abnormality is seen. ADENOPATHY: None visualized. OSSEOUS STRUCTURES: No significant abnormality is seen. BOWEL: Bowel gas pattern nonspecific with no evidence of obstruction. Suspect a duodenal diverticulu m. Diverticulosis of the colon with no CT evidence of diverticulitis. OTHER: Fat-containing periumbilical hernia noted. Aorta of normal caliber. No free fluid. No free air . Atherosclerotic change of the aorta. IMPRESSION: 1. DIVERTICULOSIS WITH NO CT EVIDENCE OF DIVERTICULITIS. 2. SUSPECT DUODENAL DIVERTICULUM. 3. NO EVIDENCE OF RENAL STONE OR HYDRONEPHROSIS
== END | disposition home or self-care (01) ==
LOC: RADCTMAIN 13:26
PROVIDERS: ATTEND Physician Assistant
DX: K57.90 Diverticulosis of intestine, part unspecified, without perforation or abscess without bleeding (principal)
CPT/HCPCS: 74176

== ENCOUNTER 2020-06-21 11:07 | Observation (INO) | payer BC ==
--- NOTE | 2020-06-21 11:43 | ED ---
General Adult HPI - General Chief complaint: Shortness of Breath Stated complaint: Abd pain, sore throat Time Seen by Provider: 06/21/20 11:21 Source: patient Mode of arrival: ambulatory Limitations: no limitations - History of Present Illness Initial comments: Patient 54-year-old femal with history of COPD e presenting to the emergency department with chief complaint of cough and congestion. Patient reports symptoms of benign one for approximately 2 weeks. States she has a productive cough with white sputum production. No increase and salivation. Also reports having a sore throat, rhinorrhea and occasional otalgia. Patient states she does have ALLERGIES and this appears to be like it. Patient denies taking medication to alleviate the symptoms. She reports she does have shortness of breath at baseline secondary to COPD but does not use oxygen at home. States she does have inhalers but does not like using them. She does report interm ittent wheezing especially in the morning and night. Denies any night sweats fevers or chills. Denies any direct exposure to known Covid patient. - Related Data Home Medications Medication Instructions Recorded Confirmed ALPRAZolam [Xanax] 0.5 mg PO BID PRN 12/16/16 04/21/18 metFORMIN HCL [Glucophage] 500 mg PO BID 12/16/16 04/21/18 traMADol HCL [Ultram] 50 mg PO Q6HR PRN 12/16/16 04/21/18 Fexofenadine HCl [Carlotta Allergy] 180 mg PO HS 03/23/18 04/21/18 Montelukast [Singulair] 10 mg PO HS 03/23/18 04/21/18 diphenhydrAMINE HCL [Benadryl] 25 mg PO Q6H PRN 03/23/18 04/21/18 Allergies Allergy/AdvReac Type Severity Reaction Status Date / Time pregabalin [From Lyrica] Allergy Mild Rash/Hives Verified 06/21/20 11:16 Review of Systems ROS Statement: Those systems with pertinent positive or pertinent negative responses have been documented in the HPI. ROS Other: All systems not noted in ROS Statement are negative. Past Medical History Past Medical History: COPD, Diabetes Mellitus, Fibromyalgia, Hyperlipidemia, Liver Disease, Skin Disorder Additional Past Medical History / Comment(s): Abd pain. fatty liver, bronchitis, occasional bilateral tinnitis, rosecea, History of Any Multi-Drug Resistant Organisms: MRSA Date of last positivie culture/infection: 08/24/15 MDRO Source:: lower abdomen/pelvic area Past Surgical History: Cholecystectomy Additional Past Surgical History / Comment(s): LORRAINE FUNDOPLICATION 02/22/17, COLONOSCOPY AND EGD, I & D OF LABIAL ABSCESS/, GROIN ABSCESS FROM INGROWN HAIR, RIGHT OVARIAN CYST Past Anesthesia/Blood Transfusion Reactions: Motion Sickness, Postoperative Nausea & Vomiting (PONV) Additional Past Anesthesia/Blood Transfusion Reaction / Comment(s): no sx hx Past Psychological History: Anxiety, Depression Smoking Status: Former smoker Past Alcohol Use History: None Reported Past Drug Use History: Marijuana - Past Family History Father History Unknown: Yes Additional Family Medical History / Comment(s): pacemaker,anxiety,depression Mother History Unknown: Yes Family Medical History: Diabetes Mellitus, Hypertension Additional Family Medical History / Comment(s): depression/anxiety General Exam Limitations: no limitations General appearance: alert, in no apparent distress Head exam: Present: atraumatic, normocephalic, normal inspection Eye exam: Present: normal appearance, PERRL, EOMI Pupils: Present: normal accommodation ENT exam: Present: normal exam, normal oropharynx, mucous membranes dry, TM's normal bilaterally, normal external ear exam Neck exam: Present: normal inspection, full ROM. Absent: tenderness Respiratory exam: Present: wheezes (Very subtle expiratory wheezes bilaterally). Absent: respiratory distress Cardiovascular Exam: Present: regular rate, normal rhythm, normal heart sounds Extremities exam: Present: normal inspection, full ROM, normal capillary refill. Absent: tenderness Back exam: Present: normal inspection, full ROM. Absent: tenderness Neurological exam: Present: alert, oriented X3 Psychiatric exam: Present: normal affect, normal mood Skin exam: Present: warm, dry, intact, normal color Course Vital Signs 06/21/20 06/21/20 06/21/20 11:13 12:02 12:10 Temperature 98.3 F Pulse Rate 66 54 L 55 L Respiratory 18 Rate Blood Pressure 149/90 O2 Sat by Pulse 96 Oximetry EKG Findings - EKG Comments: EKG Findings:: Sinus rhythm with PVC. QT prolongation. Ventricular rate 61, NE 146, QRS 92, QTC 579. Medical Decision Making - Medical Decision Making Patient is a 54-year-old female presenting to emergency Department with chief complaint of cough and shortness of breath. History of COPD and smoker. Patient was given a DuoNeb treatment here with improvement of symptoms. Patient was also given some prednisone. EKG shows QT prolongation at 576. Potassium of 2.9. Magnesium 2.1. Oral and IV potassium started. Patient will be admitted for further medical management. Case discussed with Linda Krishnamurthy NP who will admit under . Case discussed with - Lab Data Result diagrams: 06/21/20 13:15 06/21/20 13:15 Lab Results 06/21/20 06/21/20 Range/Units 13:15 13:15 WBC 9.0 (3.8-10.6) k/uL RBC 4.99 (3.80-5.40) m/uL Hgb 16.3 H (11.4-16.0) gm/dL Hct 46.2 H (34.0-46.0) % MCV 92.7 (80.0-100.0) fL MCH 32.6 (25.0-35.0) pg MCHC 35.2 (31.0-37.0) g/dL RDW 13.0 (11.5-15.5) % Plt Count 279 (150-450) k/uL Neutrophils % 55 % Lymphocytes % 37 % Monocytes % 3 % Eosinophils % 2 % Basophils % 1 % Neutrophils # 5.0 (1.3-7.7) k/uL Lymphocytes # 3.4 (1.0-4.8) k/uL Monocytes # 0.3 (0-1.0) k/uL Eosinophils # 0.2 (0-0.7) k/uL Basophils # 0.1 (0-0.2) k/uL Sodium 139 (137-145) mmol/L Potassium 2.9 L (3.5-5.1) mmol/L Chloride 104 (98-107) mmol/L Carbon Dioxide 25 (22-30) mmol/L Anion Gap 10 mmol/L BUN 4 L (7-17) mg/dL Creatinine 0.41 L (0.52-1.04) mg/dL Est GFR (CKD-EPI)AfAm >90 (>60 ml/min/1.73 sqM) Est GFR (CKD-EPI)NonAf >90 (>60 ml/min/1.73 sqM) Glucose 144 H (74-99) mg/dL Calcium 9.2 (8.4-10.2) mg/dL Magnesium 2.1 (1.6-2.3) mg/dL Total Bilirubin 1.6 H (0.2-1.3) mg/dL AST 55 H (14-36) U/L ALT 41 H (4-34) U/L Alkaline Phosphatase 71 (38-126) U/L Total Protein 7.4 (6.3-8.2) g/dL Albumin 4.8 (3.5-5.0) g/dL Disposition Clinical Impression: QT prolongation, Shortness of breath, Cough, Hypokalemia Disposition: ADMITTED IP TO THIS HOSP Condition: Good Additional Instructions: He will be admitted Is patient prescribed a controlled substance at d/c from ED?: No Referrals: Leo Hines MD [Primary Care Provider] - 1-2 days Time of Disposition: 14:15
[2020-06-21] MEDS ORDERED: predniSONE 20 MG TAB PO STA (11:50)
[2020-06-21] MEDS ORDERED: IPRATROPIUM-ALBUTEROL 3 ML NEB INHALATION STA (11:50)
--- NOTE | 2020-06-21 12:40 | XR ---
EXAMINATION TYPE: XR chest 2V DATE OF EXAM: 06/21/2020 COMPARISON: 02/15/2019 TECHNIQUE: PA and lateral views submitted. HISTORY: Cough FINDINGS: The lungs are clear and there is no pneumothorax, pleural effusion, or focal pneumonia. Heart size normal. No overt failure. Mild hyperinflation. Correlate for asthma or COPD. Mild hypertrophic change of the vertebral column. Surgical clips in the abdomen. IMPRESSION: 1. No acute process.
[2020-06-21 13:30] LABS: Basophils # (A) 0.1 k/uL (0-0.2); Basophils % (A) 1 %; Eosinophils # (A) 0.2 k/uL (0-0.7); Eosinophils % (A) 2 %; HCT 46.2 % (34.0-46.0); HGB 16.3 gm/dL (11.4-16.0); Lymphocytes # (A) 3.4 k/uL (1.0-4.8); Lymphocytes % (A) 37 %; MCH 32.6 pg (25.0-35.0); MCHC 35.2 g/dL (31.0-37.0); MCV 92.7 fL (80.0-100.0); Mean Platelet Volume 8.4; Monocytes # (A) 0.3 k/uL (0-1.0); Monocytes % (A) 3 %; Neutrophils % (A) 55 %; Platelet Count 279 k/uL (150-450); RBC 4.99 m/uL (3.80-5.40)
[2020-06-21 13:39] LABS: ALT 41 U/L (4-34); AST 55 U/L (14-36); African American GFR (CKD) >90 (>60 ml/min/1.73 sqM); Albumin 4.8 g/dL (3.5-5.0); Alkaline Phosphatase 71 U/L (38-126); Anion Gap 10 mmol/L; Blood Urea Nitrogen 4 mg/dL (7-17); Calcium 9.2 mg/dL (8.4-10.2); Carbon Dioxide 25 mmol/L (22-30); Chloride 104 mmol/L (98-107); Glucose 144 mg/dL (74-99); Magnesium 2.1 mg/dL (1.6-2.3); Non-African American GFR(CKD) >90 (>60 ml/min/1.73 sqM); Potassium 2.9 mmol/L (3.5-5.1); Sodium 139 mmol/L (137-145); Total Bilirubin 1.6 mg/dL (0.2-1.3); Total Protein 7.4 g/dL (6.3-8.2)
[2020-06-21] MEDS ORDERED: POTASSIUM CHLORIDE ER 20 MEQ TAB.ER PO STA (13:53)
[2020-06-21] MEDS ORDERED: POTASSIUM CHLORIDE 20 MEQ in WATER FOR INJECTION 1 100ML.BAG IVPB STA (13:54)
[2020-06-21] MEDS ORDERED: NALOXONE 0.4 MG/ML 1 ML VIAL IV PRN (14:08)
[2020-06-21] MEDS: SODIUM CHLORIDE 0.9% 1,000 ML IV SCH (14:25)
[2020-06-21] MEDS: ACETAMINOPHEN TAB 325 MG TAB PO PRN ×2 (14:28→20:18)
[2020-06-21] MEDS: MORPHINE SULFATE 4 MG/ML SYRINGE IV PRN (16:10)
--- NOTE | 2020-06-21 18:50 | P.HPIM ---
History of Present Illness H&P Date: 06/21/20 Chief Complaint: Nausea vomiting and diarrhea Ms. Randle is a 54-year-old female, who follows with Dr. Leo Hines in outpatient setting, with a past medical history of COPD, diabetes mellitus, fibromyalgia, GERD, hypertension, hyperlipidemia, diverticulitis, bilateral carp al tunnel coming in with a chief complaint of cough and congestion. She states that the cough with whitish sputum production has been going on for the past couple of months. Patient denies having any fevers. But she states that what brought her to the hospital is basically the nausea and vomiting along with some diarrhea. Patient states that for the past 1 day she felt sick to her stomach to up couple of times and also was having diarrhea 3 or 4 times. She denies having any blood in her stool. She denies having any fevers chills or rigors. Patient states that she has chronic bronchitis because of her COPD but she is not on oxygen at home. She states that she was started on couple of new inhalers that she has been taking for the past few days. Patient denies having any chest pain or palpitations. She denies having any dysuria or hematuria. No flank pain or low back pain. In the emergency patient had chest x-ray done showed no acute process. Patient's vitals at the time of admission temperature 98.3, heart rate 66, respiratory rate 18, blood pressure 149/90, saturating at 96% on room air. On reviewing the labs she had a hemoglobin of 16.3, white count of 9, platelets 27 9. Electrolytes sodium 139, potassium 2.9, chloride 104, bicarbonate 26, BNP 4, creatinine 0.41. Total bilirubin of 1.6, AST 55, ALT 41, alkaline phosphatase 71. Review of Systems REVIEW OF SYSTEMS: CONSTITUTIONAL: No fever, no malaise, no fatigue. HEENT: No recent visual problems or hearing problems. Denied any sore throat. CARDIOVASCULAR: No chest pain, palpitations, orthopnea or PND PULMONARY: As per HPI GASTROINTESTINAL: As per HPI NEUROLOGICAL: No headaches, no weakness, no numbness. HEMATOLOGICAL: Denies any bleeding or petechiae. GENITOURINARY: Denies any burning micturition, frequency, or urgency. MUSCULOSKELETAL/RHEUMATOLOGICAL: No joint swelling or pain ENDOCRINE: Denies any polyuria or polydipsia. The rest of the 13-point review of systems is negative. Past Medical History Past Medical History: COPD, Diabetes Mellitus, Fibromyalgia, GERD/Reflux, Hearing Disorder / Deafness, Hyperlipidemia, Liver Disease, Skin Disorder Additional Past Medical History / Comment(s): Abd pain, gastritis, diverticulitis, lactose allergy, severe allergies to metal, fatty liver, bronchitis, bilateral tinnitis, rosacea, bilateral carpal tunnel syndrome, History of Any Multi-Drug Resistant Organisms: MRSA Date of last positivie culture/infection: 08/24/15 MDRO Source:: lower abdomen/pelvic area Past Surgical History: Cholecystectomy Additional Past Surgical History / Comment(s): Garrick fundoplication, EGDs, colonoscopies, I&D L suprapubic abscess, lap surgery for R ovarian cyst, ESS/septoplasty with turbinate reduction. Past Anesthesia/Blood Transfusion Reactions: Motion Sickness, Postoperative Nausea & Vomiting (PONV) Additional Past Anesthesia/Blood Transfusion Reaction / Comment(s): no sx hx Smoking Status: Current every day smoker - Past Family History Father History Unknown: Yes Additional Family Medical History / Comment(s): pacemaker,anxiety,depression Mother History Unknown: Yes Family Medical History: Diabetes Mellitus, Hypertension Additional Family Medical History / Comment(s): depression/anxiety Medications and Allergies Home Medications Medication Instructions Recorded Confirmed Type metFORMIN HCL [Glucophage] 500 mg PO DAILY 12/16/16 06/21/20 History Fexofenadine HCl [Carlotta Allergy] 180 mg PO HS 03/23/18 06/21/20 History Montelukast [Singulair] 10 mg PO HS 03/23/18 06/21/20 History DULoxetine HCL [Cymbalta] 30 mg PO HS 06/21/20 06/21/20 History Levothyroxine Sodium 25 mcg PO DAILY 06/21/20 06/21/20 History Allergies Allergy/AdvReac Type Severity Reaction Status Date / Time pregabalin [From Lyrica] Allergy Mild Rash/Hives Verified 06/21/20 14:18 Physical Exam Vitals: Vital Signs Temp Pulse Resp BP BP Pulse Ox 06/21/20 16:45 97.9 F 18 107/52 98 06/21/20 12:10 55 L 06/21/20 12:02 54 L 06/21/20 11:13 98.3 F 66 18 149/90 96 Intake and Output 06/21/20 06/21/20 06/21/20 06:59 14:59 22:59 Other: # Voids 1 Weight 81.647 kg 81.647 kg PHYSICAL EXAMINATION: GENERAL: appears to be in no acute distress. HEENT: Pupils are round and equally reacting to light. EOMI. mild scleral icterus. No conjunctival pallor. Normocephalic, atraumatic. No pharyngeal eryth ilan. No thyromegaly. CARDIOVASCULAR: S1 and S2 heard. No additional sounds. PULMONARY: Clear liquids sounds are positive. No wheeze or crackles. ABDOMEN: Soft, nontender, nondistended, normoactive bowel sounds. No palpable organomegaly. MUSCULOSKELETAL: No joint swelling or deformity. EXTREMITIES: No cyanosis, clubbing, or pedal edema. NEUROLOGICAL: Alert awake oriented 3, Gross neurological examination did not reveal any focal deficits. SKIN: No rash Results CBC & Chem 7: 06/21/20 13:15 06/21/20 19:01 Labs: Abnormal Lab Results - Last 24 Hours (Table) 06/21/20 06/21/20 Range/Units 13:15 13:15 Hgb 16.3 H (11.4-16.0) gm/dL Hct 46.2 H (34.0-46.0) % Potassium 2.9 L (3.5-5.1) mmol/L BUN 4 L (7-17) mg/dL Creatinine 0.41 L (0.52-1.04) mg/dL Glucose 144 H (74-99) mg/dL Total Bilirubin 1.6 H (0.2-1.3) mg/dL AST 55 H (14-36) U/L ALT 41 H (4-34) U/L Thrombosis Risk Factor Assmnt - Choose All That Apply Any of the Below Risk Factors Present?: Yes Each Factor Represents 1 point: Age 41-60 years, Obesity (BMI >25) Other Risk Factors: No Other congenital or acquired thrombophilia - If yes, enter type in comment: No Thrombosis Risk Factor Assessment Total Risk Factor Score: 2 Thrombosis Risk Factor Assessment Level: Low Risk Assessment and Plan Assessment: ASSESSMENT Nausea vomiting and diarrhea- probably due to gastroenteritis Hypokalemia-with prolonged QT Transaminitis Elevated bilirubin Acute COPD with exacerbation Type 2 diabetes mellitus Fibromyalgia GERD Hyperlipidemia History of diverticulitis History of gastritis Several ALLERGIES History of Garrick fundoplication History of right ovarian cyst removal History of cholecystectomy History of anxiety with depression Nicotine dependence Rahul ideas PLAN: Patient has nausea and vomiting probably due to gastroenteritis. Supportive management with IV fluids. She has hypokalemia, will replace potassium and repeat potassium levels. Patient has been given IV steroids in the ED. We will continue with breathing treatments. We'll check amylase and lipase. Patient has been restarted on home medications. Further recommendations to follow depending on the progress of the patient.
[2020-06-21 19:32] LABS: African American GFR (CKD) >90 (>60 ml/min/1.73 sqM); Anion Gap 9 mmol/L; Blood Urea Nitrogen 4 mg/dL (7-17); Calcium 8.7 mg/dL (8.4-10.2); Carbon Dioxide 23 mmol/L (22-30); Chloride 105 mmol/L (98-107); Glucose 307 mg/dL (74-99); Non-African American GFR(CKD) >90 (>60 ml/min/1.73 sqM); Potassium 3.3 mmol/L (3.5-5.1); Sodium 137 mmol/L (137-145)
[2020-06-21] MEDS: diphenhydrAMINE 25 MG CAP PO PRN (20:18)
[2020-06-21] MEDS: DULoxetine HCL 30 MG CAPSULE.DR PO SCH (20:18)
[2020-06-21] MEDS: MONTELUKAST 10 MG TAB PO SCH (20:18)
[2020-06-21] MEDS: LORATADINE 10 MG TAB PO SCH (20:18)
[2020-06-22 01:04] LABS: Glucose,Whole Blood 189 mg/dL (75-99)
[2020-06-22] MEDS ORDERED: Potassium Replacement Protocol 1 EACH MISC MISCELLANE PRN (01:27)
[2020-06-22] MEDS ORDERED: POTASSIUM CHLORIDE ER 20 MEQ TAB.ER PO STA (01:29)
[2020-06-22] MEDS ORDERED: POTASSIUM CHLORIDE ER 20 MEQ TAB.ER PO SCH (02:00)
[2020-06-22] MEDS: SODIUM CHLORIDE 0.9% 1,000 ML IV SCH ×2 (03:35→17:59)
[2020-06-22] MEDS: LEVOTHYROXINE 25 MCG TAB PO SCH (05:27)
[2020-06-22 06:57] LABS: Glucose,Whole Blood 129 mg/dL (75-99)
[2020-06-22] MEDS: INSULIN ASPART (NovoLOG) 100 UNIT/ML VIAL SQ SCH ×4 (07:22→20:34)
[2020-06-22 07:30] LABS: Basophils % (A) 0 %; Eosinophils % (A) 0 %; HCT 40.8 % (34.0-46.0); HGB 13.8 gm/dL (11.4-16.0); Lymphocytes # (A) 3.1 k/uL (1.0-4.8); Lymphocytes % (A) 38 %; MCHC 33.9 g/dL (31.0-37.0); MCV 94.6 fL (80.0-100.0); Mean Platelet Volume 8.6; Monocytes # (A) 0.3 k/uL (0-1.0); Monocytes % (A) 3 %; Neutrophils # (A) 4.6 k/uL (1.3-7.7); Neutrophils % (A) 57 %; Platelet Count 241 k/uL (150-450); RBC 4.31 m/uL (3.80-5.40); RDW 13.2 % (11.5-15.5); WBC 8.1 k/uL (3.8-10.6)
[2020-06-22 07:38] LABS: Potassium 3.7 mmol/L (3.5-5.1)
[2020-06-22 07:39] LABS: ALT 33 U/L (4-34); AST 35 U/L (14-36); African American GFR (CKD) >90 (>60 ml/min/1.73 sqM); Albumin 4.1 g/dL (3.5-5.0); Alkaline Phosphatase 59 U/L (38-126); Amylase 35 U/L (30-110); Anion Gap 5 mmol/L; Blood Urea Nitrogen 7 mg/dL (7-17); Calcium 8.6 mg/dL (8.4-10.2); Carbon Dioxide 27 mmol/L (22-30); Chloride 110 mmol/L (98-107); Glucose 116 mg/dL (74-99); Non-African American GFR(CKD) >90 (>60 ml/min/1.73 sqM); Sodium 142 mmol/L (137-145); Total Bilirubin 1.5 mg/dL (0.2-1.3); Total Protein 6.2 g/dL (6.3-8.2)
[2020-06-22] MEDS: ACETAMINOPHEN TAB 325 MG TAB PO PRN (07:50)
[2020-06-22] MEDS: diphenhydrAMINE 25 MG CAP PO PRN ×2 (07:58→20:34)
[2020-06-22] MEDS: MORPHINE SULFATE 4 MG/ML SYRINGE IV PRN ×2 (10:09→20:35)
[2020-06-22 12:13] LABS: Glucose,Whole Blood 141 mg/dL (75-99)
[2020-06-22 13:47] VITALS: BMI 30.9
[2020-06-22 16:46] LABS: Glucose,Whole Blood 128 mg/dL (75-99)
[2020-06-22 20:18] LABS: Glucose,Whole Blood 162 mg/dL (75-99)
[2020-06-22] MEDS: DULoxetine HCL 30 MG CAPSULE.DR PO SCH (20:34)
[2020-06-22] MEDS: LORATADINE 10 MG TAB PO SCH (20:34)
[2020-06-22] MEDS: MONTELUKAST 10 MG TAB PO SCH (20:34)
--- NOTE | 2020-06-22 23:58 | P.PN ---
Subjective Progress Note Date: 06/22/20 Principal diagnosis: Hypokalemia Ms. Randle is a 54-year-old female, who follows with Dr. Leo Hines in outpatient setting, with a past medical history of COPD, diabetes mellitus, fibromyalgia, GERD, hypertension, hyperlipidemia, diverticulitis, bilateral carpal tunnel coming in with a chief complaint of cough and congestion. She states that the cough with whitish sputum production has been going on for the past couple of months. Patient denies having any fevers. But she states that what brought her to the hospital is basically the nausea and vomiting along with some diarrhea. Patient states that for the past 1 day she felt sick to her stomach to up couple of times and also was having diarrhea 3 or 4 times. She denies having any blood in her stool. She denies having any fevers chills or rigors. Patient states that she has chronic bronchitis because of her COPD but she is not on oxygen at home. She states that she was started on couple of new inhalers that she has been taking for the past few days. Patient denies having any chest pain or palpitations. She denies having any dysuria or hematuria. No flank pain or low back pain. In the emergency patient had chest x-ray done showed no acute process. Patient's vitals at the time of admission temperature 98.3, heart rate 66, respiratory rate 18, blood pressure 149/90, saturating at 96% on room air. On reviewing the labs she had a hemoglobin of 16.3, white count of 9, platelets 279. Electrolytes sodium 139, potassium 2.9, chloride 104, bicarbonate 26, BNP 4, creatinine 0.41. Total bilirubin of 1.6, AST 55, ALT 41, alkaline phosphatase 71. On 06/22/2020-patient was lying in bed appears to be in no acute distress. As per the nursing staff report, patient states that she has allergies to perfume and has been closing her face with a cloth. When I went into the room she was covering her nose and mouth with a clot, she states that she is allergic to a lot of things and that it makes her throat dry. Patient denies having any nasal congestion. She states that her nausea vomiting and diarrhea have resolved. Denies having any chest pain or palpitations. No cough or difficulty breathing. Patient's potassium from this morning is 3.7. Active Medications Acetaminophen (Tylenol Tab) 650 mg PO Q6HR PRN PRN Reason: Mild Pain or Fever > 100.5 Last Admin: 06/22/20 07:50 Dose: 650 mg Documented by: Diphenhydramine HCl (Benadryl) 25 mg PO QID PRN PRN Reason: Allergy Symptoms Last Admin: 06/22/20 20:34 Dose: 25 mg Documented by: Duloxetine HCl (Cymbalta) 30 mg PO [facility] Last Admin: 06/22/20 20:34 Dose: 30 mg Documented by: Sodium Chloride (Saline 0.9%) 1,000 mls @ 75 mls/hr IV .[id number] [facility] Last Admin: 06/22/20 17:59 Dose: Not Given Documented by: Insulin Aspart (Novolog) 0 unit SQ [facility]; Protocol Last Admin: 06/22/20 20:34 Dose: 1 unit Documented by: Levothyroxine Sodium (Synthroid) 25 mcg PO DAILY@0630 [facility] Last Admin: 06/22/20 05:27 Dose: 25 mcg Documented by: Loratadine (Claritin) 10 mg PO [facility] Last Admin: 06/22/20 20:34 Dose: 10 mg Documented by: Miscellaneous Information (Potassium Per Protocol) 1 each MISCELLANE DAILY PRN; Protocol PRN Reason: Per Protocol Montelukast Sodium (Singulair) 10 mg PO [facility] Last Admin: 06/22/20 20:34 Dose: 10 mg Documented by: Morphine Sulfate (Morphine Sulfate (Inj)) 4 mg IV Q4HR PRN PRN Reason: Severe Pain Last Admin: 06/22/20 20:35 Dose: 4 mg Documented by: Naloxone HCl (Narcan) 0.2 mg IV Q2M PRN PRN Reason: Opioid Reversal Objective - Vital Signs Vital signs: Vital Signs Temp 98.1 F 06/22/20 21:00 Pulse 51 L 06/22/20 21:00 Resp 18 06/22/20 21:00 BP 114/55 06/22/20 21:00 Pulse Ox 97 06/22/20 21:00 Intake & Output 06/22/20 06/22/20 06/23/20 06:59 18:59 06:59 Intake Total 150 Balance 150 Weight 81.647 kg Intake: Oral 150 Other: Voiding Method Toilet Toilet # Voids 1 2 - Exam PHYSICAL EXAMINATION: GENERAL: appears to be in no acute distress. she has been covering her nose with a cloth HEENT: Pupils are round and equally reacting to light. EOMI. mild scleral icterus. No conjunctival pallor. CARDIOVASCULAR: S1 and S2 heard. No additional sounds. PULMONARY: clear breath sounds are positive. No wheeze or crackles. ABDOMEN: Soft, nontender, nondistended, normoactive bowel sounds. No palpable organomegaly. MUSCULOSKELETAL: No joint swelling or deformity. EXTREMITIES: No cyanosis, clubbing, or pedal edema. NEUROLOGICAL: Alert awake oriented 3, Gross neurological examination did not reveal any focal deficits. SKIN: No rash - Labs CBC & Chem 7: 06/22/20 07:05 06/22/20 07:05 Labs: Abnormal Lab Results - Last 24 Hours (Table) 06/22/20 06/22/20 06/22/20 Range/Units 01:02 06:56 07:05 Chloride 110 H (98-107) mmol/L Creatinine 0.42 L (0.52-1.04) mg/dL Glucose 116 H (74-99) mg/dL POC Glucose (mg/dL) 189 H 129 H (75-99) mg/dL Total Bilirubin 1.5 H (0.2-1.3) mg/dL Total Protein 6.2 L (6.3-8.2) g/dL 06/22/20 06/22/20 06/22/20 Range/Units 12:10 16:41 20:16 Chloride (98-107) mmol/L Creatinine (0.52-1.04) mg/dL Glucose (74-99) mg/dL POC Glucose (mg/dL) 141 H 128 H 162 H (75-99) mg/dL Total Bilirubin (0.2-1.3) mg/dL Total Protein (6.3-8.2) g/dL Assessment and Plan Assessment: ASSESSMENT Nausea vomiting and diarrhea- probably due to gastroenteritis Hypokalemia-with prolonged QT Transaminitis Elevated bilirubin Acute COPD with exacerbation Type 2 diabetes mellitus Fibromyalgia GERD Hyperlipidemia History of diverticulitis History of gastritis Several ALLERGIES History of Garrick fundoplication History of right ovarian cyst removal History of cholecystectomy History of anxiety with depression Nicotine dependence Marwan ideas PLAN: Patient has nausea and vomiting probably due to gastroenteritis, resolved since last night.We have been replacing her potassium, her potassium from this morning is 3.7 we will repeat an EKG. COVID-19 testing has come back negative. As the patient had mild elevation in her LFTs, repeat labs were done and they are back to normal. She has slightly elevated bilirubin at 1.5. Amylase and lipase with normal limits. Current medication regimen. Anticipate discharge in the next 24 hours.
[2020-06-23] MEDS: LEVOTHYROXINE 25 MCG TAB PO SCH (05:17)
[2020-06-23] MEDS: diphenhydrAMINE 25 MG CAP PO PRN (05:19)
[2020-06-23] MEDS: SODIUM CHLORIDE 0.9% 1,000 ML IV SCH (05:29)
[2020-06-23 06:40] LABS: Glucose,Whole Blood 127 mg/dL (75-99)
[2020-06-23] MEDS: INSULIN ASPART (NovoLOG) 100 UNIT/ML VIAL SQ SCH (07:55)
[2020-06-23 09:28] LABS: African American GFR (CKD) >90 (>60 ml/min/1.73 sqM); Anion Gap 4 mmol/L; Blood Urea Nitrogen 8 mg/dL (7-17); Calcium 8.1 mg/dL (8.4-10.2); Carbon Dioxide 27 mmol/L (22-30); Chloride 107 mmol/L (98-107); Glucose 145 mg/dL (74-99); Non-African American GFR(CKD) >90 (>60 ml/min/1.73 sqM); Potassium 3.7 mmol/L (3.5-5.1); Sodium 138 mmol/L (137-145)
[2020-06-23 09:43] VITALS: BP 127/61; PULSE 50; RESP 14; TEMP 98.6
== END 2020-06-23 11:34 | disposition left against medical advice (07) ==
LOC: EC 11:07 → 1SOBS 14:24
PROVIDERS: ADMIT Hospitalist; ATTEND Hospitalist
DX: E87.6 Hypokalemia (principal); I45.81 Long QT syndrome; R11.2 Nausea with vomiting, unspecified; J44.1 Chronic obstructive pulmonary disease with (acute) exacerbation; R05 Cough; J02.9 Acute pharyngitis, unspecified; H91.90 Unspecified hearing loss, unspecified ear; K21.9 Gastro-esophageal reflux disease without esophagitis; G56.03 Carpal tunnel syndrome, bilateral upper limbs; I10 Essential (primary) hypertension; E11.9 Type 2 diabetes mellitus without complications; M79.7 Fibromyalgia; Z20.828 Contact with and (suspected) exposure to other viral communicable diseases; F17.200 Nicotine dependence, unspecified, uncomplicated; E78.5 Hyperlipidemia, unspecified; K76.9 Liver disease, unspecified; K76.0 Fatty (change of) liver, not elsewhere classified; H93.19 Tinnitus, unspecified ear; L71.9 Rosacea, unspecified; Z86.14 Personal history of Methicillin resistant Staphylococcus aureus infection; Z90.49 Acquired absence of other specified parts of digestive tract; Z98.890 Other specified postprocedural states; F41.9 Anxiety disorder, unspecified; F32.9 Major depressive disorder, single episode, unspecified; Z82.49 Family history of ischemic heart disease and other diseases of the circulatory system; Z81.8 Family history of other mental and behavioral disorders; Z83.3 Family history of diabetes mellitus; Z79.890 Hormone replacement therapy; Z79.84 Long term (current) use of oral hypoglycemic drugs; Z79.899 Other long term (current) drug therapy; Z88.8 Allergy status to other drugs, medicaments and biological substances
CPT/HCPCS: 93005 ×2; 96376; 96365; 96366; 96375; 99285; 36415; 94640; 80053 ×2; 80048; 82150; 83690; 83735; 85025 ×2; 71046; G0378 ×3; U0003; J2270 ×2; J3480; J7512

== ENCOUNTER → 2020-07-06 | Outpatient (CLI) | payer BC ==
[2020-07-06 19:48] LABS: Calcium 9.2 mg/dL (8.7-10.3)
[2020-07-07 14:09] LABS: Thyroid Peroxidase Antibodies <28.0 U/mL (0.0-60.0)
== END | disposition home or self-care (01) ==
LOC: LABWHC1 11:51
PROVIDERS: ATTEND Otolaryngology
DX: R20.0 Anesthesia of skin (principal); E03.9 Hypothyroidism, unspecified
CPT/HCPCS: 36415; 82306; 82310; 83520; 83970; 86038; 86376